=== PATIENT | male | born 2000 | race Caucasian/White ===

== ENCOUNTER 2024-05-27 21:47 | Emergency (ER) | payer OTHER ==
[~2024-05-27] VITALS: Ht 172.7 cm; Wt 59.0 kg
[~2024-05-27 21:47] MED LIST: AMOX50SU PO; CEPH250SUA PO; CODACEE120 PO; FOLI1 PO; MELA3 PO
[2024-05-27 21:53] VITALS: BP 121/73
[2024-05-27] MEDS ORDERED: RX Prepack 2 Tabs Ondansetron ODT 4MG UD ONE (22:10)
[2024-05-27] MEDS ORDERED: ONDA4ODT MM (22:15)
== END 2024-05-27 22:13 | disposition home or self-care (01) ==
LOC: ER 21:47
DX: S06.0X0A Concussion without loss of consciousness, initial encounter (principal); W22.8XXA Striking against or struck by other objects, initial encounter
CPT/HCPCS: 99283; A9270

== ENCOUNTER 2024-10-01 19:04 | Inpatient (IN) | payer OTHER ==
[~2024-10-01] VITALS: Ht 167.6 cm; Wt 54.4 kg
[~2024-10-01 19:04] MED LIST changes: +ONDA4ODT MM
[2024-10-01 19:46] LABS: BASOPHILS ABSOLUTE AUTO 0.04 K/mm3 (0.00-0.23); BASOPHILS PERCENT AUTO 1 % (0-2); EOSINOPHILS ABSOLUTE AUTO 0.11 K/mm3 (0.00-0.68); EOSINOPHILS PERCENT AUTO 1 % (0-6); Hematocrit 45.3 % (37.0-53.0); Hemoglobin 14.9 g/dL (13.5-17.5); IMMATURE GRAN ABSOLUTE AUTO 0.03 K/mm3 (0.00-0.10); IMMATURE GRAN PERCENT AUTO 0 % (0-1); LYMPHOCYTES ABSOLUTE AUTO 1.78 K/mm3 (0.84-5.20); LYMPHOCYTES PERCENT AUTO 21 % (21-46); MONOCYTES ABSOLUTE AUTO 0.48 K/mm3 (0.16-1.47); MONOCYTES PERCENT AUTO 6 % (4-13); Mean Corpuscular HGB 29.6 pg (26.0-34.0); Mean Corpuscular HGB Conc 32.9 g/dL (31.5-36.5); Mean Corpuscular Volume 90 fL (80-100); Mean Platelet Volume 10.4 fL (9.1-12.4); NEUTROPHILS ABSOLUTE AUTO 5.95 K/mm3 (1.96-9.15); NEUTROPHILS PERCENT AUTO 71 % (41-73); Platelet Count 305 K/mm3 (150-400); RDW Standard Deviation 42.8 fL (35.1-46.3); Red Blood Cell Count 5.04 M/mm3 (4.30-5.90); White Blood Cell Count 8.39 K/mm3 (4.00-11.30)
[2024-10-01 20:23] LABS: Ethanol (Alcohol), Blood, Med <3 mg/dL
[2024-10-01 20:24] LABS: Salicylate <1.7 mg/dL (2.8-20.0)
[2024-10-01 20:35] LABS: Source, Urine Clean Catch
[2024-10-01 20:40] LABS: Appearance, Urine Clear (Clear); Bilirubin, Urine Neg (Neg); Blood, Urine Neg (Neg); Color, Urine Yellow (P-Yellow); Glucose Qualitative, Urine Neg (Neg); Ketones, Urine Neg (Neg); Leukocyte Esterase, Urine 1+ (Neg); Nitrite, Urine Neg (Neg); Protein, Urine Neg (Neg); Urobilinogen, Urine NORM (Normal)
[2024-10-01 20:50] LABS: Alanine Aminotransfer (ALT/SGP 29 U/L (12-78); Albumin, Blood 4.3 g/dL (3.4-5.0); Alk Phos 72 U/L (50-136); Anion Gap 9 mmol/L (3-11); Aspartate Aminotrans (AST/SGOT 16 U/L (12-37); Bilirubin, Total 0.6 mg/dL (0.1-1.0); Blood Urea Nitrogen 8 mg/dL (8-24); CO2, Blood 29 mmol/L (21-32); Calcium, Blood 9.6 mg/dL (8.5-10.1); Chloride, Blood 102 mmol/L (98-108); Globulin, Blood 4.4 g/dL (2.2-4.0); Glomerular Filtration Rate 127 (60-); Glucose, Blood 105 mg/dL (70-99); Potassium, Blood 3.9 mmol/L (3.5-5.5); Sodium, Blood 136 mmol/L (136-145); Total Protein, Blood 8.7 g/dL (6.4-8.2)
[2024-10-01 20:51] LABS: Acetaminophen, Random <2.0 ug/mL (10.0-30.0)
[2024-10-01 20:52] LABS: Bacteria Few /hpf; Red Blood Cells, Urine Not Seen /hpf (0-2); Squamous Epithelial Cells Not Seen /hpf (Few); White Blood Cells, Urine 0-2 /hpf (0-5)
[2024-10-01] MEDS ORDERED: DiphenhydrAMINE HCl 50 MG/ML 1ML Vial IM ONE (21:35)
[2024-10-01] MEDS ORDERED: LORazepam 2 MG/ML 1ML Injection IM ONE (21:35)
[2024-10-01] MEDS ORDERED: Haloperidol Lactate Inj. 5 MG/ML Injection IM ONE (21:35)
[2024-10-01 21:37] LABS: U Amphetamine Screen Not Detected; U Barbituate Screen Not Detected; U Benzodiazapine Screen DETECTED; U Buprenorphine Screen Not Detected; U Cannabinoids Screen DETECTED; U Cocaine Screen Not Detected; U Methadone Screen Not Detected; U Methamphetamine Screen Not Detected; U Opiates Screen Not Detected; U Oxycodone Screen Not Detected; U Phencyclidine Screen Not Detected
[2024-10-01] MEDS ORDERED: FLUOXETINE HCL60 MG PO (22:33)
[2024-10-01] MEDS ORDERED: Melatonin 1 MG Tablet PO ONE (22:35)
[2024-10-02 14:42] VITALS: BP 111/62
== END 2024-10-02 15:02 | disposition other institution (70) | DRG 883 ==
LOC: ER 19:04 → EOR 23:46
PROVIDERS: Student in an Organized Health Care Education/Training Program; ADMIT Emergency Medicine
DX: F60.3 Borderline personality disorder (principal); R45.851 Suicidal ideations; F31.60 Bipolar disorder, current episode mixed, unspecified
CPT/HCPCS: 80053; 80320; 81001; 85025; 87086; 93005; 93010; 96372; 99285-25; A9270; G0378; G0480; J1200; J1630; J2060

== ENCOUNTER 2024-10-02 12:55 | Inpatient (IN) | payer OTHER ==
[~2024-10-02] VITALS: Ht 172.7 cm; Wt 51.0 kg
[~2024-10-02 12:55] MED LIST changes: +FLUOXETINE HCL60 MG PO
[2024-10-02] MEDS ORDERED: HydrOXYzine Pamoate 50 MG Cap PO PRN (13:45)
[2024-10-02] MEDS ORDERED: LORazepam 2 MG Tab PO PRN (13:50)
[2024-10-02] MEDS ORDERED: Ibuprofen 600 MG Tab PO PRN (13:50)
[2024-10-02] MEDS ORDERED: LORazepam 2 MG/ML 1ML Injection IM PRN (13:50)
[2024-10-02] MEDS ORDERED: Melatonin 3 MG Tab PO PRN (13:50)
[2024-10-02] MEDS ORDERED: OLANZapine ODT 10 MG Tab MM PRN (13:50)
[2024-10-02] MEDS ORDERED: Haloperidol 5 MG Tab PO PRN (13:50)
[2024-10-02] MEDS ORDERED: Ondansetron 4 MG SoluTab MM PRN (13:50)
[2024-10-02] MEDS ORDERED: DiphenhydrAMINE HCl 50 MG Cap PO PRN (13:55)
[2024-10-02] MEDS ORDERED: Calcium Carbonate 500 MG Tab Chew PO PRN (13:55)
[2024-10-02] MEDS ORDERED: Polyethylene Glycol 3350 17 gm PO PRN (13:55)
[2024-10-02] MEDS ORDERED: Aluminum Hydroxide 320MG/5ML 473 ML PO PRN (13:55)
[2024-10-02] MEDS ORDERED: DiphenhydrAMINE HCl 50 MG/ML 1ML Vial IV PRN (13:55)
[2024-10-02] MEDS ORDERED: TraZODone HCl 50 MG Tab PO PRN (13:55)
[2024-10-02] MEDS ORDERED: Acetaminophen 325 MG TABLET PO PRN (13:55)
[2024-10-02] MEDS ORDERED: Haloperidol Lactate Inj. 5 MG/ML Injection IM PRN (14:00)
[2024-10-02] MEDS ORDERED: FLU VACC TS2024-25(6MOS UP)/PF 45 MCG/0.5 ML SYRINGE IM SCH (14:00)
[2024-10-02 15:13] VITALS: BP 110/89
[2024-10-02 15:41] VITALS: BP 110/89
--- NOTE | 2024-10-02 16:59 | NUR ---
ADMISSION NOTE. PT ARRIVED FROM THE ER AT 1505. PT A/O X4. PT WAS COVERED IN STOOL. SHOWERED ON ARRIVAL. SKIN CHECK BY 2 RNS. NO WOUND PRESENT. PT IS MANIC AND NEVER STOPS TALKING. PT STATS HE IS NOT SI, HI AND AVH. HE SAID HE MADE THE SI COMMENT BY MISTAKE. PT HARD TO KEEP ENGAGED ON INTERVIEW. JUMPS FROM SUBJECT OF HIMSELF IN APPRAISALS, THEN GOES BACK TO TALKING ABOUT HIS GIRLFRIEND, THEN RELIGON, AND CONTINUES THIS CYCLE. WANTS TO GO TO SLEEP. STATED HE NEVER HAD A PLAN ON SI. SAID HE DID NOT HAVE ENOUGH MARIJUANA THE NIGHT OF HIS OCCURANCE. GIVEN TOUR OF THE UNIT, EXPLAINED WHAT IS EXPECTED ON HIS ADMIT AND HW THE UNIT RUNS. INTODUCED PT TO PEERS, HE THEN WENT OFF TO BED AND HAS BEEN SLEEPING SINCE ARRIVAL.
--- NOTE | 2024-10-03 04:30 | NUR ---
SHIFT SUMMARY Pt is A&O, calm, cooperative, eye contact is appropriate. Pt stated that his mood was "much better than earrlier. Affect is constricted. Pt denies SI, HI, and hallucinations. Pt also denied current pain. Pt was sleeping in his room at the beginning of the shift. He was awakened at snack time and assessed. Pt was visibly tremulous while drinking his beverage in the lunch room. He has no scheduled HS meds, but did ask for PRN trazodone and melatonin. Pt appears gaunt and malnourished. His weight is 114 lbs and BMI 17.3. Columnist submitted dietitian consult and he was given an Ensure with his snack. Pt returned to his room after his snack and remained there for the rest of the shift. Staff continues to monitor for safety and wellness.
[2024-10-03 07:58] VITALS: BP 129/87
[2024-10-03] MEDS ORDERED: Multivitamins 1 Tab PO SCH (09:00)
[2024-10-03 09:06] VITALS: BP 110/89
--- NOTE | 2024-10-03 09:37 | NUR ---
PT AWAKE AT BEGINNING OF SHIFT. COMPLIANT THAT HE IS ANXIOUS. PACNG THE THE FLOOR. TANGENTIEL THOUGHTS, NON-STOP TALKING. PT IS FOUCUSED ON HIS /GIRLFRIEND WANTING TO USE THE PHONE AT 0630 TO CALL HER. PT HAD VISTERAIL AT 0550. IT IS NOW AT 0854 WAS GIVEN ZYPREXA TO SEE F THIS WILL HELP. PT IS HYPER VERBAL, HYPERACTIVE, INTRUSIVE, HAS FLIGHT OF IDEAS. WILL LET MD KNOW AT AM MEETING. WILL CONTINUE TO MONITOR.
[2024-10-03] MEDS ORDERED: FLUoxetine HCL 20 MG CAP PO ONE (10:35)
--- NOTE | 2024-10-03 18:06 | NUR ---
SHIFT SUMMARY: PT A/O X4. HYERACTIVE, WANTS TO BE THE LEADER AND IN CONTROL WITH OTHER PEERS, HYPERVERBAL, PACED THE HALLS MOST OF THE DAY, HAS FLIGHT OF IDEAS. STARTED ON PROZAC TODAY. ASKED FREQUENTLY FOR ANXIETY MEDICINE. DIETICAN TO SEE PT ON SATURDAY. HAS BEEN DRINKING ENSURE SHAKES. GIRLFRIEND CAME TO VISIT TODAY. WILL CONTINUE TO MONITOR.
--- NOTE | 2024-10-04 05:34 | NUR ---
SHIFT SUMMARY Pt is A&O, cooperative, hyperactive, appropriate eye contact. Pt stated his mood was "excited," affect is elevated. Pt denies SI, HI, hallucinations. He also denied pain, depression, and anxiety. Pt was active on the milieu, walking the mayers and talking with peers and staff. His manner is hyperactive, hyperverbal, hyper-latter day. Pt stated to telegraphic typewriter operator chief, "I lied to get in here, I don't ron to be here anymore." when asked about pain, he replied, "only emotional, I'm missing my woman. Pt did shower this evening. Staff continues to monitor q15m for safety and wellness.
[2024-10-04 07:34] VITALS: BP 131/88
[2024-10-04] MEDS ORDERED: BusPIRone HCl 5 MG Tab PO PRN (08:25)
[2024-10-04] MEDS ORDERED: FLUoxetine HCL 20 MG CAP PO SCH (09:00)
--- NOTE | 2024-10-04 17:09 | NUR ---
SHIFT SUMMARY PT AA&OX4. PLEASANT AND COOPERATIVE WITH CARE. SPEECH IS RUSHED AND EYE CONTACT IS LIMITED. PT PRESENT WITH SOME MANIC BEHAVIORS SUCH CONSTANT ACTIVITY, RUSHED SPEECH THAT JUMPS FROM TOPIC TO TOPIC. MOOD IS EUPHORIC PT REPORTS THAT HE IS "EXTREMELY HAPPY" AND HE "DOESN'T BELONG HERE" PT REPORTS A TRIGGER WITH PEER THAT "TRIGGERED" HE REPORTS THAT A FEMALE PT CALLED HIM A "DEMON" REPEATEDLY. PEER AND PATIENT AND PT MEDICATED X1 WITH ZYPREXA WITH GOOD RESULTS. EDUCATION ON MEDICATION AND DX ATTEMPTED. PT WAS RESTLESS AND EDUCATION WILL NEED REINFORCED. WILL CONTINUE POC
[2024-10-04] MEDS ORDERED: QUEtiapine Fumarate 100 MG Tab PO SCH (21:00)
--- NOTE | 2024-10-05 05:29 | NUR ---
SHIFT SUMMARY Pt A&O, hyperactive, cooperative, eye contact is appropriate. Pt describes hismood as "best," affect is elevated. He denies SI, HI, and hallucinations. No c/o pain, depression, or anxiety. Pt was active on the milieu, pacing the hallway and talking to peers. His manner is hyperactive and hyperverbal. Pt spent time in the sensory room taking about various topics, often interupting peers as they were sharing. Pt received PRN buspirone, trazodone, melatoning, and hydroxyzine at med pass. At about 0100 he c/o neck pain and received PRN APAP. Staff continues to monitor q15m for safety and wellness.
[2024-10-05 08:53] VITALS: BP 145/93
[2024-10-05] MEDS ORDERED: Omeprazole 20 MG CapCR PO SCH (09:00)
--- NOTE | 2024-10-05 15:26 | NUR ---
SHIFT REPORT: PT DENIED SI, HI AND AVH. HE SAID HIS ANXIETY WAS A "BILLION", HE REPORTED THAT HE HAS PAIN, "IN MY HEART...IT'S MY BABY GIRLS FIRST BIRTHDAY AND I CAN'T SEE HER." HE SAID, "FORGET TODAY!" THIS SAFETY LEAD ASKED HIM TO CHOOSE A DIFFERENT THOUGHT AND HE REPLIED, "I'M GRATEFUL MY DAUGHER WAS BORN A YEAR AGO TODAY." PT IS HYPERVERBAL, HYPERACTIVE, FRIENDLY AND INTERACTIVE WITH THE MILIEU. HE ATTENDS GROUPS. HE CAME TO THE DESK AND ASKED FOR AMA PAPERS AND WAS TOLD THAT HE WAS ON A HOLD. PT COMPLAINED THAT HE IS FEELING CONSTIPATED AND WAS GIVEN MIRALAX 17GMS WITH NO SUCCESS SO FAR.
[2024-10-05] MEDS ORDERED: METF500 PO (17:59)
[2024-10-05] MEDS ORDERED: ROPI.25 PO (18:07)
[2024-10-05] MEDS ORDERED: ALBU90OI INH (18:08)
[2024-10-05] MEDS ORDERED: Haloperidol5 MG PO (18:10)
[2024-10-05] MEDS ORDERED: BENZTROPINE MESY1 M6 PO (18:12)
[2024-10-05] MEDS ORDERED: OLAN20 MM (18:13)
[2024-10-05] MEDS ORDERED: OLAN10 PO (18:13)
[2024-10-05] MEDS ORDERED: ALLERCLEAR10 MG PO (18:14)
[2024-10-05] MEDS ORDERED: QUEtiapine Fumarate 200 MG Tab PO SCH (21:00)
[2024-10-06 00:28] VITALS: BP 125/78
--- NOTE | 2024-10-06 05:18 | NUR ---
SHIFT SUMMARY Pt is A&O, cooperative, hyperactive, eye contact is appriate. Pt states his mood is "10 out of 10," affect is elevated. Pt denies SI, HI, and hallucintaions. No c/o pain, depression, or anxiety. Pt active on milieu. He continues to be hyperverbal and hyperactive. HS quetiapine increased to 200mg HS. Pt received PRN trazodone, melatonin, and olanzapine during this shift. Staff continues to monitor q15m for safety and wellness.
[2024-10-06 08:24] VITALS: BP 134/77
[2024-10-06] MEDS ORDERED: Prozac40 MG PO (11:47)
[2024-10-06] MEDS ORDERED: QUET200 PO (11:48)
--- NOTE | 2024-10-06 13:11 | NUR ---
DISCHARGE NOTE SAFETY PLAN COMPLETED WITH PT AND JANEY CAMPBELL. D/C INSTRUCTIONS EXPLAINED AND COPY GIVEN TO PT. PT STATES UNDERSTANDING OF THEM. PT CONTACTED S/O FOR TRANSPORTATION HOME. MEDS FAXED TO [facility] PER PT REQUEST. PT DRESSED IN OWN CLOTHING AND GIVEN BELONGINGS BY JEREMY AGUDELO. PT AMBULATED OUT OF [facility] ON OWN USING A STEADY GAIT. ALL D/C QUESTIONS ANSWERED.
== END 2024-10-06 13:11 | disposition home or self-care (01) | DRG 883 ==
LOC: BHU 12:55
PROVIDERS: ADMIT Psychiatry & Neurology Psychiatry
DX: F60.3 Borderline personality disorder (principal); R45.851 Suicidal ideations; F31.60 Bipolar disorder, current episode mixed, unspecified; Z79.899 Other long term (current) drug therapy
CPT/HCPCS: A9270

== ENCOUNTER 2025-01-12 02:36 | Observation (INO) | payer OTHER ==
[~2025-01-12] VITALS: Ht 172.7 cm; Wt 63.5 kg
[~2025-01-12 02:36] MED LIST changes: +ALBU90OI INH; +ALLERCLEAR10 MG PO; +BENZTROPINE MESY1 M6 PO; +Haloperidol5 MG PO; +METF500 PO; +OLAN10 PO; +OLAN20 MM; +Prozac40 MG PO; +QUET200 PO; +ROPI.25 PO
[2025-01-12 04:28] LABS: Source, Urine Clean Catch
[2025-01-12 04:31] LABS: BASOPHILS ABSOLUTE AUTO 0.05 K/mm3 (0.00-0.23); BASOPHILS PERCENT AUTO 1 % (0-2); EOSINOPHILS ABSOLUTE AUTO 0.17 K/mm3 (0.00-0.68); EOSINOPHILS PERCENT AUTO 2 % (0-6); Hematocrit 43.9 % (37.0-53.0); Hemoglobin 15.1 g/dL (13.5-17.5); IMMATURE GRAN ABSOLUTE AUTO 0.03 K/mm3 (0.00-0.10); IMMATURE GRAN PERCENT AUTO 0 % (0-1); LYMPHOCYTES PERCENT AUTO 22 % (21-46); MONOCYTES ABSOLUTE AUTO 0.66 K/mm3 (0.16-1.47); MONOCYTES PERCENT AUTO 7 % (4-13); Mean Corpuscular HGB 31.1 pg (26.0-34.0); Mean Corpuscular HGB Conc 34.4 g/dL (31.5-36.5); Mean Corpuscular Volume 91 fL (80-100); Mean Platelet Volume 10.9 fL (9.1-12.4); NEUTROPHILS PERCENT AUTO 68 % (41-73); Platelet Count 301 K/mm3 (150-400); RDW Standard Deviation 42.9 fL (35.1-46.3); Red Blood Cell Count 4.85 M/mm3 (4.30-5.90); White Blood Cell Count 9.81 K/mm3 (4.00-11.30)
[2025-01-12 04:37] LABS: Bilirubin, Urine Neg (Neg); Blood, Urine Neg (Neg); Glucose Qualitative, Urine Neg (Neg); Ketones, Urine Neg (Neg); Leukocyte Esterase, Urine Neg (Neg); Nitrite, Urine Neg (Neg); Protein, Urine Neg (Neg); Urobilinogen, Urine NORM (Normal)
[2025-01-12 04:39] LABS: Appearance, Urine Clear (Clear); Color, Urine Pale Yellow (P-Yellow)
[2025-01-12 04:44] LABS: Salicylate <1.7 mg/dL (2.8-20.0)
[2025-01-12 05:00] LABS: U Amphetamine Screen Not Detected; U Barbituate Screen Not Detected; U Benzodiazapine Screen Not Detected; U Buprenorphine Screen Not Detected; U Cannabinoids Screen DETECTED; U Cocaine Screen Not Detected; U Methadone Screen Not Detected; U Methamphetamine Screen Not Detected; U Opiates Screen Not Detected; U Oxycodone Screen Not Detected; U Phencyclidine Screen Not Detected
[2025-01-12] MEDS ORDERED: OLANZapine 5 MG Tab PO ONE (05:05)
[2025-01-12 05:12] LABS: Acetaminophen, Random <2.0 ug/mL (10.0-30.0); Alanine Aminotransfer (ALT/SGP 45 U/L (12-78); Albumin, Blood 3.6 g/dL (3.4-5.0); Albumin/Globulin Ratio 0.9 (0.8-1.8); Alk Phos 82 U/L (50-136); Anion Gap 12 mmol/L (3-11); Aspartate Aminotrans (AST/SGOT 42 U/L (12-37); Bilirubin, Total 0.4 mg/dL (0.1-1.0); Blood Urea Nitrogen 8 mg/dL (8-24); Bun/Creatinine Ratio 6.7 (12.0-20.0); CO2, Blood 22 mmol/L (21-32); Calcium, Blood 8.5 mg/dL (8.5-10.1); Chloride, Blood 107 mmol/L (98-108); Ethanol (Alcohol), Blood, Med <3 mg/dL; Globulin, Blood 3.8 g/dL (2.2-4.0); Glomerular Filtration Rate 86 (60-); Glucose, Blood 133 mg/dL (70-99); Sodium, Blood 137 mmol/L (136-145); Total Protein, Blood 7.4 g/dL (6.4-8.2)
[2025-01-12 05:37] VITALS: BP 148/99
[2025-01-12] MEDS ORDERED: TRAZ100 PO (14:10)
[2025-01-12] MEDS ORDERED: Hydroxyzine HCl50 MG PO (14:10)
== END 2025-01-12 13:00 | disposition other institution (70) ==
LOC: ER 02:36 → EOR 02:37
PROVIDERS: ADMIT Emergency Medicine
DX: F31.9 Bipolar disorder, unspecified (principal); R45.851 Suicidal ideations; Z79.84 Long term (current) use of oral hypoglycemic drugs; Z79.899 Other long term (current) drug therapy
CPT/HCPCS: 80053; 80320; 81003; 85025; 93005; 93010; 99285-25; A9270; G0378; G0480

== ENCOUNTER 2025-01-12 12:29 | Inpatient (IN) | payer OTHER ==
[~2025-01-12] VITALS: Ht 172.7 cm; Wt 62.3 kg
[2025-01-12 13:09] VITALS: BP 124/88
[2025-01-12 13:36] VITALS: BP 124/88
[2025-01-12] MEDS ORDERED: Prozac40 MG PO (14:09)
[2025-01-12] MEDS ORDERED: Hydroxyzine HCl50 MG PO (14:10)
[2025-01-12] MEDS ORDERED: TRAZ100 PO (14:10)
[2025-01-12] MEDS ORDERED: Aluminum Hydroxide 320MG/5ML 473 ML PO PRN (15:40)
[2025-01-12] MEDS ORDERED: Melatonin 3 MG Tab PO PRN (15:40)
[2025-01-12] MEDS ORDERED: OLANZapine ODT 10 MG Tab MM PRN (15:40)
[2025-01-12] MEDS ORDERED: Ondansetron 4 MG SoluTab MM PRN (15:40)
[2025-01-12] MEDS ORDERED: TraZODone HCl 50 MG Tab PO PRN (15:40)
[2025-01-12] MEDS ORDERED: Acetaminophen 325 MG TABLET PO PRN (15:40)
[2025-01-12] MEDS ORDERED: Ibuprofen 600 MG Tab PO PRN (15:45)
[2025-01-12] MEDS ORDERED: Polyethylene Glycol 3350 17 gm PO PRN (15:45)
[2025-01-12] MEDS ORDERED: LORazepam 2 MG/ML 1ML Injection IM PRN (15:45)
[2025-01-12] MEDS ORDERED: Haloperidol Lactate Inj. 5 MG/ML Injection IM PRN (15:45)
[2025-01-12] MEDS ORDERED: Haloperidol 5 MG Tab PO PRN (15:45)
[2025-01-12] MEDS ORDERED: LORazepam 2 MG Tab PO PRN (15:45)
[2025-01-12] MEDS ORDERED: HydrOXYzine Pamoate 50 MG Cap PO PRN (15:45)
[2025-01-12] MEDS ORDERED: Calcium Carbonate 500 MG Tab Chew PO PRN (15:45)
[2025-01-12] MEDS ORDERED: DiphenhydrAMINE HCl 50 MG Cap PO PRN (15:50)
[2025-01-12] MEDS ORDERED: DiphenhydrAMINE HCl 50 MG/ML 1ML Vial IM PRN (15:50)
--- NOTE | 2025-01-12 17:32 | NUR ---
ADMISSION NOTE AND SHIFT SUMMARY PT ARRIVED TO U FROM [facility] ED AT APPROX 1304. PT IS Ax0x4. PLEASANT AND COOPERATIVE WITH CARE. PT'S ADMISSION COMPLETED AND ALL VOLUNTARY FORMS WERE SIGNED AND FILED IN CHART. PT WAS ADMITTED FOR SI AND CURRENLTY STILL ENDORSES FEELING SUICIDAL BUT DENIES HAVING PLAN OR INTENT, STATING HE "FEELS SAFE HERE AND WON'T DO ANY THING LIKE THAT HERE." PT DENIES ANY AVTH OR HI. CURRENT STRESSORS REPORTED ARE HOUSLESSNESS, POOR SUPPORT SYSTEM AND RECENT TRAUMATIC MCFP STAY. PT ATTENDED THE AFTERNOON MILIEU GROUP AFTER ADMISSION, BUT HAS PRIMARILY BEEN IN HIS BED SLEEPING. PT DECLINED GETTING UP FOR DINNER. HE IS CURRENTLY RESTING IN HIS BED. DENIED ANY NEEDS AT THIS TIME.
[2025-01-12 20:00] VITALS: BP 117/71
--- NOTE | 2025-01-13 04:21 | NUR ---
SHIFT SUMMARY PT SLEEPING AT START OF SHIFT. HE AWOKE SHORTLY PRIOR TO SNACK TIME. HE WAS ORIENTED TO SELF ONLY. HE STATED HE THOUGHT HE WAS STILL IN DETENTION. WHEN ASKED IF HE WAS SUICIDAL OR HAD ANY AVH HE STATES "I DON'T KNOW". PT STATES THAT HIS DEPRESSION LEVEL IS 10/10. AT TIMES PT IS TEARFUL. SPEECH BECAME LOUD AND PRESSURED WITH FLIGHT OF IDEAS. PT RECEIVED PRN TRAZODNE, MELATONIN, ZYPREXA FOR MASS OF 6 AND LATER VISTARIL FOR MASS OF 3. PT APPEARED TO FALL ASLEEP AT APPROXIMATELY 2300 AND HAS SLEPT THROUGHOUT THE NIGHT, WITH RESPIRATIONS CONFIRMED. Q15 MINUTE CHECKS TO CONTINUE PER PT SAFETY/PROTOCOL.
[2025-01-13 06:35] LABS: CHOL/HDL RATIO 2.8; Cholesterol 157 mg/dL (50-200); HDL Cholesterol 57 mg/dL (>39); LDL/HDL RATIO 1.5; Low Density Lipoprotein Chol 87 mg/dL (0-110); Triglycerides 64 mg/dL (30-140); Very Low Density Lipoprot Chol 12 mg/dL (6-28)
[2025-01-13 08:20] VITALS: BP 130/78
[2025-01-13] MEDS ORDERED: Multivitamins 1 Tab PO SCH (09:00)
[2025-01-13] MEDS ORDERED: Divalproex Sodium 500 MG TABLET.DR PO ONE (10:50)
[2025-01-13] MEDS ORDERED: OLANZapine 10 MG Tab PO ONE (10:50)
[2025-01-13] MEDS ORDERED: LORazepam 1 MG Tab PO ONE (10:55)
--- NOTE | 2025-01-13 11:50 | NUR ---
After Group time in the [facility], the Pt. followed this medicine aide out into the hallway, where he requested prayer. Pt. verbalized that he wanted to be able to see his daughter again. Prayed with Pt. Pt. verbalized gratitude for the spiritual care visit.
--- NOTE | 2025-01-13 16:43 | NUR ---
SHIFT SUMMARY PT AA&O TO PERSON. HE WAS NOT ABLE TO TELL THIS RN THE DATE, WHERE HE IS OR HOW LONG HE HAS BEEN ON THE UNIT. PT BEHAVIOR ELEVATED THIS AM. PT SPEECH TANGENTAL, HE WAS PACING THE HICKMAN. HE WAS UNAWARE OF PERSONSONAL SPACE WITH PEERS ON THE MILIEU. HE IS HYPER RELIGOUS. HE REPORTS THAT HE LOVES. EVERYONE. HE DENIED SI FOR THIS RN THEN ENDORSED TO MD. DR. COBB PLACED ONE TIME ORDER FOR 20MG ZYPREXA, 1MG ATIVAN WITH GOOD RESULTS. HE HAS BEEN ABLE TO DEESCALATE. HE HAS BEEN ABLE TO GO TO PARTIAL GROUPS. HE DOES REQUIRE REDIRECTION OFTEN. HE DENIES SI, AVH. WILL CONTINUE POC
[2025-01-13 20:23] VITALS: BP 125/50
[2025-01-13] MEDS ORDERED: Divalproex Sodium 500 MG TABLET.DR PO SCH (21:00)
[2025-01-13] MEDS ORDERED: OLANZapine 10 MG Tab PO SCH (21:00)
--- NOTE | 2025-01-13 23:16 | NUR ---
MASS SCORE: PATIENT WAS STILL AWAKE AFTER 2300, UPSET AND BECOMING AGITATED DUE TO PERVASIVE THOUGHTS EXACERBATED BY ROOMMATE SNORING. HE WAS GIVEN SECOND TRAZODONE AND ZYPREXA FOR MASS SCORE 4/10. WILL FOLLOW UP INDICATED.
--- NOTE | 2025-01-14 04:22 | NUR ---
SHIFT SUMMARY: PLEASE SEE OTHER TWO NOTES FROM PABLO. PATIENT SINCE NOTES WERE WRITTEN HAS BEEN UP X1 TO ASK IF IT IS TIME TO EAT YET. HE WANTED NICORETTE GUM. HE WAS TOLD THAT HE CAN HAVE IT AFTER 0630 WHEN HE GETS UP, AND HE WAS ABLE TO ACCEPT THAT AND GO BACK TO BED. HE WAS NOTED TO BE RESTING MOST OF THE TIME FOR THE REMAINDER OF THE SHIFT. CONTINUING TO MONITOR FOR SAFETY WITH Q15 MINUTE CHECKS.
[2025-01-14] MEDS ORDERED: FLUoxetine HCL 20 MG CAP PO SCH (09:00)
[2025-01-14] MEDS ORDERED: Divalproex Sodium 500 MG TABLET.DR PO ONE (12:05)
--- NOTE | 2025-01-14 18:34 | NUR ---
SHIFT SUMMARY: PT HAS SPENT MOST OF DAY OUTSIDE OF ROOM. EPISODES OF LOUD, MU-ISM SPEECH BUT FOLLOWS REQUESTS IMMEDIATELY TO SPEAK QUIETER OR NOT BE DISRUPTIVE. MUCH CALMER AFTER FELLOW PATIENT LEFT WHOM GIANCARLO TENDED TO ELEVATE SYMPTOMS AROUND. MET WITH READING RECOVERY TEACHER TODAY AND RECEIVED A BIBLE. MEDICATIONS INCREASED BY THIS AM. CONTINUE 15 MIN SAFETY CHECKS.
[2025-01-14 19:32] VITALS: BP 116/75
[2025-01-14] MEDS ORDERED: Divalproex Sodium 500 MG TABLET.DR PO SCH (21:00)
--- NOTE | 2025-01-15 04:07 | NUR ---
SHIFT SUMMARY: PATIENT WAS IN THE MILIEU AT THE BEGINNING OF THE SHIFT. HE WAS INAPPROPRIATE AT TIMES, TALKING TO FEMALE PEER AND TELLING HER THEY WERE GETTING . HE WAS CUED AND REDIRECTED BY STAFF, BUT WOULD LATER REPEAT HIS WORDS. FEMALE PEER WAS CLEARLY UNCOMFORTABLE AND SAT BY FEMALE MHA IN DAY ROOM AREA. PATIENT PARTICIPATED IN SNACK TIME AT 1999, AND WAS COMPLIANT WITH EVENING MEDICATIONS. HE STAYED UP FOR A TIME, TALKING WITH STAFF AND PEERS AND WORKING ON COLORING. HE WENT TO BED WHEN THE DAY ROOM CLOSED AND WAS NOTED TO BE RESTING QUIETLY WITH EYES CLOSED AND RESPIRATIONS CONFIRMED FOR THE REMAINDER OF THE SHIFT. CONTINUING TO MONITOR FOR SAFETY WITH Q15 MINUTE CHECKS.
--- NOTE | 2025-01-15 16:29 | NUR ---
PATIENT HYPERVIGILANT, HIGH ENERGY PACING UP AND DOWN HALLWAYS AND INTRUSIVE WITH PEERS AND STAFF, COMMENTING ABOUT LOOKS, ASKING PATIENTS AND STAFF TO HIM, BEAT-BOXING HE PACES IN THE HICKMAN. PATIENT DID ENDORSE SI THIS AM, STATING THAT HED LIKE TO BY MARKET RESEARCH ANALYST, OR PLACE HEAD ON TRAIN TRACKS. HE WAS GIVEN A B52 EARLY IN THE SHIFT, WHICH WAS EFFECTIVE IN REDUCING SYMPTOMS BUT NOT ELIMINATING THEM. EZRA IS ALERT, HYPERVIGILENT AND SINGING IN THE GROUP ROOM CURRENTLY. HE TOOK ALL OF HIS MORNING MEDS, A PRN ZYPREXA, AND THE B52 AND STILL HAS ONGOING HIGH ENERGY. THOUGHT CONTENT APPEARS TO BE A FLIGHT OF IDEAS WITHOUT LOGIC. AFFECT IS HAPPY AND ALERT. MOOD IS ACTUALLY LABILE WITH PERIODS OF CRYING CHANGING TO HAPPY- SUDDENLY.
[2025-01-15 19:07] VITALS: BP 131/90
--- NOTE | 2025-01-16 05:09 | NUR ---
SHIFT SUMMARY PT A&O X4. DENIES SI, HI, AVTH. PT MANIC W/ CIRCUMSTANTIAL THINKING. RAPID SPEECH W/ INTERMITTENT INNAPPROPRIATE REMARKS. DIFFICULT TO REDIRECT. BEFORE BED, PT STATED, "I'M SANDY, I KNOW SANDY, HE'S MY FRIEND.". PT ALSO PUT TOOTHPASTE OVER HIS ARM AND HEAD, TOOTHPASTE TAKEN AWAY. PT ALSO MARKED HIS FACE W/ MARKER. B52 GIVEN D/T AGITATION. HAS BEEN SLEEPING/RESTING QUIETLY SINCE 0200~. PT ALSO REFUSED TO TAKE DEPAKOTE EVEN W/ REPEATED EDUCATION GIVEN ON PURPOSE OF MEDICATION W/ PT STATING THAT HIS MANIC STATUS IS "NORMAL".
--- NOTE | 2025-01-16 08:37 | NUR ---
PT SLEPT THROUGH BREAKFAST. WILL MEDICATE WITH AM MEDS ONCE HE IS AWAKE.
--- NOTE | 2025-01-16 13:55 | NUR ---
PT PACING THE HALLS. SPEECH ELEVATED AND TANGENTAL. HE IS EMOTIONALY LABILE REPORTING THAT HE IS AN ALIEN, MONKEY, AND THAT HE LOVES GOD. HE REPORTS WANTING TO LEAVE AMA. HE IS AGRREABLE TO TAKING AN ORAL BENADRYL, ATIVAN, AND HALODOL. MASS SCORE COMPLETE AND MEDICATION GIVEN WITHOUT ISSUE
--- NOTE | 2025-01-16 16:50 | NUR ---
SHIFT SUMMARY PT AA&O TO PERSON, PLACE, AND SITUATION. PT REQUIRED AN EMERGENCY MED THIS AFTERNOON, PLEASE SEE PREVIOUS NOTE. AFTER EMERGENCY MED PATIENT WAS ABLE TO SLEEP FOR A COUPLE HOURS. HE IS UP AND CALM. EYE CONTACT IS LIMITED, SPEECH IS LESS PRESSURED THAN THIS MORNING. PT AT THIS TIME IS UNABLE TO APPROPRIATELY ASSESSMENT QUESTIONS. WILL CONTINUE TO MONITOR
[2025-01-16 20:06] VITALS: BP 138/82
--- NOTE | 2025-01-17 01:02 | NUR ---
UPDATE PT BECAME AGITATED MASS >9, SITTING IN ROOM AND TALKED ABOUT KILLING HIMSELF, STATING "THERE ARE SO MANY THINGS IN HERE I CAN DO IT WITH.". PT ALSO BEGAN TALKING ABOUT "CORRUPT" POLICE AND HOW THEY DID NOT GIVE HIM FOOD OR DRINK FOR 3 DAYS AND ALSO PUTTING "THICK BLACK HAIRS" IN HIS FOOD. WHILE JHOAN RN GETTING B52, PT BEGAN CRYING TALKING ABOUT MISSING HIS DAUGHTER. DR COBB NOTED ABOUT PT BEING HIGH SUICIDE RISK. 1:1 SITTING AT THIS TIME. NOTIFIED GUEST SERVICE REPRESENTATIVE W/ NO SITTERS AVAILABLE. CURRENT STAFF ROTATING 1:1 SITTING.
--- NOTE | 2025-01-17 05:27 | NUR ---
SHIFT SUMMARY NO ACUTE EVENTS SINCE LAST NOTE. PT SLEEPING W/ STAFF ROTATING 1:1 SITTER. SEE PREVIOUS NOTE FOR DETAILS.
--- NOTE | 2025-01-17 07:28 | NUR ---
ASSUMED PT CARE @ 0700. PT IS AA&OX4. COMPLETED SI ASSESSMENT. PT DENIES SI AND STATES HE WILL CONTRACT FOR SAFETY ON THE UNIT. NOTIFIED 1:1 DISCONTINUED
[2025-01-17] MEDS ORDERED: BusPIRone HCl 10 MG Tab PO SCH (09:00)
--- NOTE | 2025-01-17 13:52 | NUR ---
PT BEHAVIORS ESCALATING. AT LUNCH GEORGINA AGUDELO ASKED PT TO FOLLOW DIRECTION THE PT THEN THREATENE TO "KICK HIS ASS" HE WAS ABLE TO BE REDIRECTED, HE HAS BEEN HAVING INAPPROPRIATE CONVERSATIONS WITH PEERS REGARDING DRUGS AND FIREARMS REQUIRING CONTINUOUS CUES. PT THEN SINGING LOUDLY N TV ROOM WHILE PEERS ATTEMPT TO WATCH TV. WHEN GIVEN CUES PT BEGAN ARGUING WITH STAFF REPORTING THAT WE ARE TAKING AWAY HIS FREEDOM OF SPEECH. THIS RN ATTEMPTED TO VERBALLY DEESCALATE PT WHILE WALKING THE HICKMAN. HE BEGAN STATING THAT HE WANTED TO "KILL HIMSELF" "BE VEAGAN" "LEAVE AMA" SPEECH WAS PRESSURED. HE BEGAN CRYING THEN PUNCHED THE DOOR A COUPLE TIMES SAYING HE WAS GOING TO BREAK THE WINDOW, THEN SAYING HE WASNT GOING TO BREAK THE WINDOW. PT OFFERED MEDICATION TO CALM DOWN AND HE ACCEPTED. ORAL BENADRYL, ATIVAN, AND HALODOL. PT TOOK WITHOUT ISSUE. HE THEN AGREED TO LISTEN TO HEADPHONES IN THE SENSORY ROOM
--- NOTE | 2025-01-17 16:50 | NUR ---
SHIFT SUMMARY PT AA&O TO PERSON PLACE AND SITUATION. PT EMOTIONALY LABILE TODAY. HIS MOOD FLUCTUATES BETWEEN EUTHYMIC AND ANHEDONIA. HE HAS BEEN HYPERACTIVE PACING THE HALLS AND SEEMS TO BE UNAWARE OF OTHERS PERSONAL SPACE. HE GOES FROM REPORTING THAT HE LOVES EVERYONE TO HE WANTS TO KILL HIMSELF. HE REQUIRED AM HE REQUIRED AN EMERGENCY MED WITHOUT GOOD RESULTS. PLEASE SEE PREVIOUS NOTE. EYE CONTACT IS POOR. SPEECH IS INAPPROPRIATE AT TIMES AND HE DOES NOT SEEM TO BE ABLE TO TAKE SOCIAL CUES FROM PEERS TODAY. PT PROVIDED EDUCATION ON SEVERAL COPING SKILLS AND EXERCISES. HE REQUIRES FREQUENT DEESCALATION AND REDIRECTION. WILL CONTINUE POC
[2025-01-17 20:00] VITALS: BP 134/86
[2025-01-17] MEDS ORDERED: Divalproex Sodium 500 MG TABLET.DR PO SCH (21:00)
[2025-01-17] MEDS ORDERED: Lithium Carbonate 300 MG Cap PO SCH (21:00)
--- NOTE | 2025-01-18 05:13 | NUR ---
SHIFT SUMMARY DENIES SI, HI, AVTH. PT AT START OF SHIFT WAS MANIC AND PACING THE HALLWAY/TALKING W/ STAFF/PEERS W/ RAPID SPEECH/QUESTIONS. GIVEN B52 >MASS 9 W/ INCREASING AGITATION. DURING SNACKTIME PT MADE SEVERAL INNAPPROPRIATE REMARKS TOWARDS J CARLOS. ATTEMPTS AT SETTING BOUNDARIES DIFFICULT W/ CHANGING OF TOPICS APPEARING TO BE MOST EFFECTIVE. AFTER AFTER DAYROOM CLOSING PT PACING, THEN SAT IN SENSORY ROOM BEFORE GOING TO BED TIL 0000. PT UP TO NURSES STATION AND STATING HE CANNOT FALL ASLEEP AND WANTS TO PACE THE HALLS AND TALK. EXPLAINED TO PT THAT SLEEP IS IMPORTANT AND ABOUT SETTING BOUNDARIES W/ PT GOING BACK TO HIS ROOM. PT STATED THAT THIS RN WAS BEING RUDE D/T TELLING PT TO GO BACK TO ROOM AND TRY TO SLEEP. INFORMED PT THAT HE WAS ABLE TO BE AWAKE, BUT TO STAY IN ROOM AND READ OR LAY DOWN (PT WAS NODDING OFF AND UNSTEADY ON FEET). HAS BEEN SLEEPING/RESTING QUIETLY SINCE THEN. NO ISSUES TAKING MEDICATIONS/
--- NOTE | 2025-01-18 11:52 | NUR ---
IMPORTANT DISCHARGE INFORMATION Patient recently released from local senior living and is without insurance. No aftercare appointments are able to scheduled at this time. Aid and Assist case management assistant requests he discharge to her office at [facility] so she can assist him to sign up for services and insurance. sound effects supervisor notified
[2025-01-18] MEDS ORDERED: DIVA500EC PO (12:02)
[2025-01-18] MEDS ORDERED: LITH300C PO (12:02)
[2025-01-18] MEDS ORDERED: OLAN10 PO (12:03)
--- NOTE | 2025-01-18 12:40 | NUR ---
SHIFT SUMMARY/DC NOTE PT AxOx4. HYPER AND DISRUPTIVE BEHAVIOR NOTED THIS AM. PT REPORTS FEELING GREAT THIS AM, STATING HE IS READY TO DISCHARGE TODAY. PT DENIED SI/HI AND AVTH THIS SHIFT. HE HAS REPEATEDLY DISPLAYED ABNOXIOUS BEHAVIORS TODAY INCLUDING CURSING, SINGING LOUDLY, DEFIANTLY ARGUING WHEN STAFF ATTEMPTS REDIRECTION AND DE-ESCALATION. PT STATES HE IS NOT PLANNING ON TAKING HIS MEDICATIONS WHEN HE LEAVES BUT HE "WILL BE FINE BECAUSE I HAVE GOD." DC ORDERS PLACED, SAFETY PLAN COMPLETED AND DC INSTRUCTIONS DISCUSSED WITH PATIENT. PT VERBALIZED UNDERSTANDING INCLUDING DC MED LIST, FOLLOW UP APPOINTMENT INFO AND PATIENT EDUCATION ON DIAGNOSIS AND NEW MEDICATION. PT'S BELONGINGS WERE RETURNED AND HE WAS SAFELY ESCORTED OUT BY A AT 1230.
== END 2025-01-18 12:30 | disposition home or self-care (01) | DRG 885 ==
LOC: BHU 12:29
PROVIDERS: ADMIT Psychiatry & Neurology Psychiatry
DX: F31.60 Bipolar disorder, current episode mixed, unspecified (principal); R45.851 Suicidal ideations; Z59.00 Homelessness unspecified; K58.9 Irritable bowel syndrome, unspecified; F41.9 Anxiety disorder, unspecified; Z79.899 Other long term (current) drug therapy; Z87.19 Personal history of other diseases of the digestive system; Z79.1 Long term (current) use of non-steroidal anti-inflammatories (NSAID)
CPT/HCPCS: 36415; 80061; 83036; A9270

== ENCOUNTER 2025-01-18 17:50 | Observation (INO) | payer OTHER ==
[~2025-01-18] VITALS: Ht 167.6 cm; Wt 54.4 kg
[2025-01-20 19:42] VITALS: BP 133/117
== END 2025-01-21 11:59 | disposition other institution (70) ==
LOC: ER 17:50 → EOR 17:51
PROVIDERS: ADMIT Emergency Medicine
DX: F31.4 Bipolar disorder, current episode depressed, severe, without psychotic features (principal); R45.851 Suicidal ideations; Z79.899 Other long term (current) drug therapy

== ENCOUNTER 2025-01-21 09:46 | Inpatient (IN) | payer OTHER ==
[~2025-01-21] VITALS: Ht 172.7 cm; Wt 67.1 kg
[~2025-01-21 09:46] MED LIST changes: +DIVA500EC PO; +Hydroxyzine HCl50 MG PO; +LITH300C PO; +TRAZ100 PO
[2025-01-21 12:15] VITALS: BP 131/95
[2025-01-21 12:18] VITALS: BP 131/95
[2025-01-21] MEDS ORDERED: Nicotine Polacrilex 2 MG Gum PO PRN (13:25)
[2025-01-21] MEDS ORDERED: OLANZapine ODT 10 MG Tab PO ONE (13:25)
--- NOTE | 2025-01-21 14:31 | NUR ---
PT ADMITTED FROM ER, PT TANGETIAL AND PACING WHILE ALSO EATING DURING INTAKE, PT IS UNABLE TO RECALLY WHY OR HOW HE WENT TO THE ER. HE STATES HE WENT TO VISIT HIS STEPMOM AND THE POLICE WERE CALLED, PT ADAMANTLY STATES HE DID NOT TRY TO KILL HIMSELF, STATES HE DOES NOT FEEL SUICIDAL NOR HOMICIDAL, SPEECH IS RAPID AND PRESSURED, TANGENTIAL AND DIFFICULT TO FOLLOW. PT HAS DIFFICULTY ANSWERING OPEN ENDED QUESTIONS, HE IS ABLE TO ANSWER YES/NO QUESTIONS. HE INTERMITTENTLY WILL BEGIN TO SING SONGS RELATED TO A WORD THAT WAS SAID, PT INTERMITTENTLY SCREAMING "SANDY," AND MAKES MANDAEN STATEMENTS, PROFESSES LOVE AND APPRECIATION TO OTHER PEOPLE IN THE BUILDING. HE ALSO STATES HE IS ANXIOUS AND HE IS WORRIED ABOUT HIS SAFETY, HE FEELS HE IS IN DANGER "OUTSIDE," PT ALSO SEES ANOTHER PATIENT AND STATES HE BELONGS TO A GANG, THEN REFERS TO HIM "MY HOMIE."
[2025-01-21] MEDS ORDERED: Haloperidol Lactate Inj. 5 MG/ML Injection IM PRN (15:15)
[2025-01-21] MEDS ORDERED: HydrOXYzine Pamoate 50 MG Cap PO PRN ×2 (15:15→15:20)
[2025-01-21] MEDS ORDERED: Haloperidol 5 MG Tab PO PRN (15:20)
[2025-01-21] MEDS ORDERED: LORazepam 2 MG Tab PO PRN (15:20)
[2025-01-21] MEDS ORDERED: LORazepam 2 MG/ML 1ML Injection IM PRN (15:20)
[2025-01-21] MEDS ORDERED: Ibuprofen 600 MG Tab PO PRN (15:20)
[2025-01-21] MEDS ORDERED: Melatonin 3 MG Tab PO PRN (15:20)
[2025-01-21] MEDS ORDERED: DiphenhydrAMINE HCl 50 MG/ML 1ML Vial IM PRN (15:25)
[2025-01-21] MEDS ORDERED: Polyethylene Glycol 3350 17 gm PO PRN (15:25)
[2025-01-21] MEDS ORDERED: Acetaminophen 325 MG TABLET PO PRN (15:25)
[2025-01-21] MEDS ORDERED: OLANZapine ODT 10 MG Tab MM PRN (15:25)
[2025-01-21] MEDS ORDERED: Calcium Carbonate 500 MG Tab Chew PO PRN (15:25)
[2025-01-21] MEDS ORDERED: Aluminum Hydroxide 320MG/5ML 473 ML PO PRN (15:25)
[2025-01-21] MEDS ORDERED: DiphenhydrAMINE HCl 50 MG Cap PO PRN (15:25)
[2025-01-21] MEDS ORDERED: Ondansetron 4 MG SoluTab MM PRN (15:25)
[2025-01-21] MEDS ORDERED: TraZODone HCl 50 MG Tab PO PRN (15:30)
--- NOTE | 2025-01-21 17:59 | NUR ---
SHIFT SUMMARY PT AA&O TO PERSON AND PLACE. HE IS UNABLE TO RECALL EVENTS IN ER. SPEECH IS RAPID AND TANGENTAL. HE IS UNABLE TO ANSWER APPROPRIATELY. PT PACING HALLS. HE REQUIRES CONSISTANT REDIRECTION. HE IS EMOTIONALY LABILE. HE REPORTS BEING SCARED AND NOT FEELING SAFE. HE ESCALATED TOWARD THE END OF SHIFT AND REQUIRED A B52. HE IS NOW RESTING IN THE SENSORY ROOM. WILL CONTINUE POC
[2025-01-21 20:07] VITALS: BP 106/75
[2025-01-21] MEDS ORDERED: OLANZapine 10 MG Tab PO SCH (21:00)
[2025-01-21] MEDS ORDERED: Lithium Carbonate 300 MG TabCR PO SCH ×2 (21:00)
[2025-01-21] MEDS ORDERED: Divalproex Sodium 250 MG TABLET.DR PO SCH (21:00)
--- NOTE | 2025-01-22 05:06 | NUR ---
SHIFT SUMMARY: PATIENT WAS AWAKE IN THE DAY ROOM AT THE BEGINNING OF THE SHIFT. HE CAME OUT AND PACED UP AND DOWN THE HALLWAYS, STOPPING TO GREET STAFF AND PEERS. HE STATED TO THEM HOW MUCH HE LOVED THEM AND SANDY. HE WAS FRIENDLY AND POSITIVE. HE DENIED ANY THOUGHTS OF SELF HARMING OR SUICIDAL IDEATION. HE PARTICIPATED IN SNACK AND THEN WENT BACK TO THE DAY ROOM, CONTINUING TO COME OUT AND GREET STAFF. HE GREETED THE NEW PATIENT BY NAME AND STATED HE KNEW HER. HE WAS COMPLIANT WITH EVENING MEDICATIONS. HE GOT UP X1 DURING SENIOUR INSIGHT MANAGER AND STATED HE WAS HAVING A HARD TIME SLEEPING. HE WAS GIVEN A VISTARIL WHICH WAS EFFECTIVE. OTHERWISE, ONCE HE WENT TO BED AFTER THE VISTARIL, HE WAS NOTED TO BE RESTING QUIETLY WITH EYES CLOSED AND RESPIRATIONS CONFIRMED. CONTINUING TO MONITOR FOR SAFETY WITH Q15 MINUTE CHECKS.
[2025-01-22 07:04] VITALS: BP 130/94
[2025-01-22 07:25] LABS: Alanine Aminotransfer (ALT/SGP 80 U/L (12-78); Albumin, Blood 3.5 g/dL (3.4-5.0); Albumin/Globulin Ratio 0.9 (0.8-1.8); Alk Phos 53 U/L (50-136); Anion Gap 8 mmol/L (3-11); Aspartate Aminotrans (AST/SGOT 73 U/L (12-37); Bilirubin, Total 0.3 mg/dL (0.1-1.0); Blood Urea Nitrogen 16 mg/dL (8-24); Bun/Creatinine Ratio 20.2 (12.0-20.0); CHOL/HDL RATIO 3.9; CO2, Blood 28 mmol/L (21-32); Calcium, Blood 9.3 mg/dL (8.5-10.1); Chloride, Blood 105 mmol/L (98-108); Cholesterol 225 mg/dL (50-200); Creatinine, Blood 0.79 mg/dL (0.60-1.20); Globulin, Blood 3.8 g/dL (2.2-4.0); Glomerular Filtration Rate 126 (60-); Glucose, Blood 106 mg/dL (70-99); HDL Cholesterol 57 mg/dL (>39); LDL/HDL RATIO 2.4; Low Density Lipoprotein Chol 137 mg/dL (0-110); Potassium, Blood 4.1 mmol/L (3.5-5.5); Sodium, Blood 137 mmol/L (136-145); Total Protein, Blood 7.3 g/dL (6.4-8.2); Triglycerides 155 mg/dL (30-140); Valproic Acid 33.6 ug/mL (50.0-100.0); Very Low Density Lipoprot Chol 31 mg/dL (6-28)
[2025-01-22] MEDS ORDERED: Multivitamins 1 Tab PO SCH (09:00)
[2025-01-22] MEDS ORDERED: ClonazePAM 1 MG Tab PO ONE (12:05)
[2025-01-22] MEDS ORDERED: ClonazePAM 1 MG Tab PO PRN (12:55)
--- NOTE | 2025-01-22 14:20 | NUR ---
PT BEHAVIORS ESCALATING WITH INCREASED MILIEU ACTIVITY AND SPEKING WITH MD. PT SPEECH RAPID AND TANGENTAL. VOLUME INCREASED. RECIEVED ONE TIME ORDER OF KLONAPIN 2MG NOW THEN KLONOPIN BID PRN. MEDICATION EFFECTIVE FOR A SHORT TIME, THEN PT BEGAN ESCALATING AGAIN. HE TRIED TO EAT A PLASTIC BALL, REPORTED FEELING UNSAFE, PT PACING THE HICKMAN SINGING LOUDLY. PT OFFERED ORAL BENADRYL, ATIVAN, AND HALODOL. HE WAS AGREEABLE. PT NOW RESTING IN THE SENSORY ROOM LISTENING TO MUSIC. WILL CONTINUE POC
--- NOTE | 2025-01-22 18:14 | NUR ---
PT SLEPT UNTIL APPROX. 1730. HE HAS BEEN CALM. HE SPOKE WITH TANK STAVE ASSEMBLER AND ATE DINNER
--- NOTE | 2025-01-22 18:15 | NUR ---
"Spiritual Care Visit | Pt. request After recieving a referral for spiritual care an attempt to visit the Pt. was made around 1600. Staff informed communicable disease specialist that the Pt. was sleeping. A plan was made to return at 1730. Arrive as scheduled met with Pt. in a meeting room. Pt. is finishing his dinner as we meet. Pt. welcomes discussion and asks questions, but does not always allow for a proper response. After Pt finished his dinner matters of anita and belief are considered at the Pts. request. It is not clear to this communicable disease specialist that the Pt. was interested in clarity or answers, but that he mostly had someone to talk to. In oreder to attempt to give the Pt. an opportunity to focus, this communicable disease specialist gave the Pt. a time limitation. Pt. displayed evidence of respecting this boundary. Before we ended we prayed together. Pt. verbalized gratitude for the spiritual care visit."
[2025-01-22 19:53] VITALS: BP 127/86
[2025-01-22] MEDS ORDERED: Lithium Carbonate 450 MG TabCR PO SCH (21:00)
[2025-01-22] MEDS ORDERED: Divalproex Sodium 500 MG TABLET.DR PO SCH (21:00)
--- NOTE | 2025-01-23 04:47 | NUR ---
SHIFT SUMMARY: PATIENT WAS IN THE HALLWAY AT THE BEGINNING OF THE SHIFT, TALKING AND PACING. HE STATED THAT HE HAS "ADHD" AND THAT HE NEEDS "IN THIS ORDER: ADDERALL, RITALIN OR STRATTERA, IN THAT ORDER, THAT'S MY ORDER OF PREFERENCE." HE WAS INAPPROPRIATELY SEXUAL WITH COMMENTS TOWARD YOUNGER FEMALE PEERS, BUT WAS REDIRECTABLE. HE WATCHED TELEVISION FOR A TIME, AND SAT IN THE DAY ROOM LISTENING TO MUSIC ON THE HEADPHONES. HE PARTICIPATED IN SNACK, AND WAS MEDICATION COMPLIANT. HE INTERACTED WITH NEW MALE PEER WHOM HE KNEW FROM A PRIOR VISIT, AND HIS PRESENCE AMPED UP THE PEER, SO HE WAS REDIRECTED SEVERAL TIMES. HE WANTED PRNS, AND WAS GIVEN VISTARIL AND A SECOND TRAZODONE. HE WAS STILL UP AND DOWN FOR A TIME, BUT WAS ABLE TO SETTLE IN AND MOSTLY REST THROUGH THE REMAINDER OF THE SHIFT, WITH EYES CLOSED AND RESPIRATIONS CONFIRMED. HE DENIED SUICIDAL IDEATION OR THOUGHTS OF SELF HARMING THIS SHIFT. CONTINUING TO MONITOR FOR SAFETY WITH Q15 MINUTE CHECKS.
[2025-01-23] MEDS ORDERED: LORazepam 2 MG Tab PO PRN (08:00)
[2025-01-23] MEDS ORDERED: ClonazePAM 1 MG Tab PO SCH ×2 (09:00→21:00)
[2025-01-23] MEDS ORDERED: RisperiDONE 1 MG Tab PO SCH (09:00)
[2025-01-23 09:48] LABS: Albumin, Blood 3.7 g/dL (3.4-5.0); Albumin/Globulin Ratio 0.9 (0.8-1.8); Bilirubin, Total 0.3 mg/dL (0.1-1.0); Bun/Creatinine Ratio 26.5 (12.0-20.0); Calcium, Blood 9.7 mg/dL (8.5-10.1); Creatinine, Blood 0.83 mg/dL (0.60-1.20); Potassium, Blood 4.4 mmol/L (3.5-5.5); Total Protein, Blood 7.7 g/dL (6.4-8.2)
[2025-01-23 09:50] LABS: Lithium 0.55 mmol/L (0.60-1.20)
--- NOTE | 2025-01-23 16:33 | NUR ---
SHIFT SUMMARY PT A/O X3; DENIES SI, HI, AND HALLUCINATIONS. PT'S AFFECT IS ELEVATED AND HIS SPEECH IS RAPID/TANGENTIAL. PT STRUGGLES WITH RESPECTING OTHER PATIENTS'/STAFF BOUNDARIES, BUT IS REDIRECTABLE. HE PARTICIPATES IN GROUPS AND MEALS. PT TOOK HIS MEDICATION THIS SHIFT WITH A LOT OF ENCOURAGEMENT. HE CONTINUES TO BE MONITORED VIA Q15 ROUNDING FOR SAFETY AND WELLNESS.
[2025-01-23] MEDS ORDERED: Lithium Carbonate 300 MG TabCR PO SCH (21:00)
[2025-01-23 21:10] VITALS: BP 128/82
--- NOTE | 2025-01-23 22:20 | NUR ---
PATIENT MEDICAL NOTE: PATIENT CAME UP TO THE NURSING BUBBLE AT 2130 AND STATED THAT HE HAD PUT A NURSING GLOVE UP INSIDE HIS RECTUM "DURING GROUP" AND THAT HE COULD NOT GET IT OUT. HE DENIED PAIN. HE STATED THAT HE WANTED THE MALE NURSE TO DIG IT OUT. MALE NURSE EXPLAINED THAT HE WOULD NEED TO GO TO THE EMERGENCY ROOM. HE SAID "THAT'S FINE". IT WAS THEN EXPLAINED THAT HE IS ON A HOLD AND CAN'T JUST GO THERE. OFFICE TECHNOLOGY INSTRUCTOR CALLED THE HOSPITALIST, WHO STATED THAT HE WILL ORDER A CT FOR TOMORROW, UNLESS PATIENT HAS PAIN OR DISTRESS. CONTINUING TO MONITOR PATIENT Q15 MINUTES FOR HEALTH AND SAFETY.
--- NOTE | 2025-01-23 23:39 | NUR ---
HOSPITALIST NOTIFIED AT 2223 OF PATIENT REPORTING HE INSERTED A GLOVE INTO HIS RECTUM EARIELER TODAY. DR WARD ORDERED A CT FOR THE AM UNLESS ISSUES ARISE THEN WILL GO TO GET CT DONE. PT IS ASLEEP AT THIS TIME AND APPEARS TO BE COMFORTABLE. WILL CONTINUE TO MONITOR
--- NOTE | 2025-01-24 04:36 | NUR ---
SHIFT SUMMARY: PATIENT WAS IN THE MILIEU TALKING WITH PEERS AND STAFF AT THE BEGINNING OF THE SHIFT. HE WAS NOTED TO BE TALKING INAPPROPRIATELY AT TIMES, BUT WAS EASILY REDIRECTED. HOWEVER, HE WOULD GET BACK TO INAPPROPRIATE SUBJECTS QUICKLY. HE SPENT SOME TIME IN THE SENSORY ROOM WITH FEMALE PEER, DOOR OPEN. HE PARTICIPATED IN SNACK AT 1999, AND WAS COMPLIANT WITH EVENING MEDICATIONS. HE APPROACHED MALE RN AND ASKED TO SPEAK TO HIM. HE TOLD MALE RN THAT HE HAD PUSHED A GLOVE UP HIS RECTUM AND COULD NOT GET IT OUT. HE STATED THAT HE GOT THE GLOVE "DURING GROUP" FROM THE "GARBAGE CAN IN THE DINING AREA". MANAGER TECHNICAL TRAINING CALLED DR ALCALA AND ASKED WHAT ORDERS HE HAD. HE PLACED PATIENT ON A 1:1. HE TOOK HIM OFF A HALF HOUR LATER, AND STATED TO CALL THE HOSPITALIST AND FOLLOW HIS ADVICE. HOSPITALIST DR HINES ORDERED A CT TO BE OBTAINED IN THE MORNING. PATIENT ASKED FOR MIRALAX BEFORE CONFESSING TO PLACING A GLOVE UP HIS RECTUM AND IT WAS GIVEN. HE WAS ASKED TO LET STAFF KNOW IF HE HAD ANY BOWEL ACTIVITY. HE DENIED SUICIDAL IDEATION. HE HAS BEEN EATING DEODORANT AND ACTING LIKE HE MIGHT SELF HARM, SO ITEMS WERE TAKEN FROM HIM, TO BE USED NEEDED. HE WOKE UP ABOUT 0330 AND STARTED COMING OUT TO ASK QUESTIONS. HE WAS PALE AND HAD DARK CIRCLES UNDER HIS EYES. THIS RN WALKED WITH PATIENT AND ASKED HIM TO BE FORTHCOMING ABOUT ANYTHING HE HAS DONE TO SELF HARM. HE STATED THAT "THE ONLY THING I DID WAS PUT A GLOVE UP MY BUTTHOLE". HE ASKED TO TAKE A SHOWER, AND SHOWER SUPPLIES WERE GIVEN. TWO STAFF WILL COLLECT THEM AND MAKE SURE EVERYTHING IS ACCOUNTED FOR WHEN HE IS DONE. CONTINUING TO CAREFULLY MONITOR AND KEEP TRACK OF BELONGINGS FOR PATIENT SAFETY.
--- NOTE | 2025-01-24 05:40 | NUR ---
MASS SCORE: PATIENT IS PRESENTING ANXIOUS AND LOOKING FOR SOMETHING TO DO. HE HAS A RECENT HISTORY OF EATING HIS DEODORANT, AND IT IS POSSIBLE THAT HE PLACED A GLOVE IN HIS RECTUM, DRANK HIS BODY WASH AND DRANK HIS MOUTHWASH. HE REQUESTED A KLONOPIN, AND THEY ARE SCHEDULED. HE IS RATED A 4 ON THE AGITATION SCALE EVIDENCED BY RESTLESSNESS LEADING TO POOR DECISION MAKING REGARDING THREAT OF SELF HARM. HE WAS THEREFORE GIVEN A ZYPREXA TO HELP HIM REGULATE AND CALM SELF.
[2025-01-24 06:31] LABS: BASOPHILS ABSOLUTE AUTO 0.05 K/mm3 (0.00-0.23); BASOPHILS PERCENT AUTO 1 % (0-2); EOSINOPHILS ABSOLUTE AUTO 0.28 K/mm3 (0.00-0.68); EOSINOPHILS PERCENT AUTO 4 % (0-6); Hematocrit 40.8 % (37.0-53.0); Hemoglobin 13.5 g/dL (13.5-17.5); IMMATURE GRAN ABSOLUTE AUTO 0.05 K/mm3 (0.00-0.10); IMMATURE GRAN PERCENT AUTO 1 % (0-1); LYMPHOCYTES ABSOLUTE AUTO 1.46 K/mm3 (0.84-5.20); LYMPHOCYTES PERCENT AUTO 18 % (21-46); MONOCYTES ABSOLUTE AUTO 0.96 K/mm3 (0.16-1.47); MONOCYTES PERCENT AUTO 12 % (4-13); Mean Corpuscular HGB 30.4 pg (26.0-34.0); Mean Corpuscular HGB Conc 33.1 g/dL (31.5-36.5); Mean Corpuscular Volume 92 fL (80-100); Mean Platelet Volume 10.7 fL (9.1-12.4); NEUTROPHILS ABSOLUTE AUTO 5.12 K/mm3 (1.96-9.15); NEUTROPHILS PERCENT AUTO 65 % (41-73); Platelet Count 230 K/mm3 (150-400); RDW Standard Deviation 44.2 fL (35.1-46.3); Red Blood Cell Count 4.44 M/mm3 (4.30-5.90); White Blood Cell Count 7.92 K/mm3 (4.00-11.30)
[2025-01-24 06:57] LABS: Bun/Creatinine Ratio 26.7 (12.0-20.0); Calcium, Blood 9.6 mg/dL (8.5-10.1); Creatinine, Blood 0.86 mg/dL (0.60-1.20); Potassium, Blood 3.9 mmol/L (3.5-5.5)
--- NOTE | 2025-01-24 08:34 | NUR ---
PT REFUSING MEDICATIONS THIS AM FOR THIS RN. PT EVENTUALLY TOOK MEDICATIONS FOR ADRIAN BAZAN WITH A LOT OF ENCOURAGEMENT AND PERSUASION. PT VISIBLY UPSET BY TAKING HIS MEDICATIONS. PT MAKING TOYS/POSSIBLE WEAPONS OUT OF OBJECTS IN HIS ROOM. PT BALLED UP WET PAPER INSIDE A MESH BRIEF AND TIED THE BRIEF IN A MANNER WHERE IT CAN BE A LIGATURE OR BE USED TO HIT SOMEONE. TOILETRIES AND OTHER ITEMS TAKEN FROM PATIENT'S ROOM IN ORDER TO MITIGATE. PT TO CT WITH MHA AND RN AT THIS TIME. SECURITY NOTIFIED.
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
--- NOTE | 2025-01-24 18:04 | NUR ---
SHIFT SUMMARY PT A/O X4; DENIES HI AND HALLUCINATIONS. PT SOMETIMES ENDORSES SI, BUT CURRENTLY DENIES. THIS MORNING PT DECLINED MEDICATION AND STATED "I DO NOT HAVE A REASON TO LIVE AND WOULDN'T MIND STAYING HERE FOR 6 MONTHS". PT PERSUADED TO TAKE MEDICATIONS. HE WENT TO CT THIS MORNING AFTER STATING THAT HE SHOVED A GLOVE UP HIS RECTUM. NO GLOVE WAS FOUND ON THE CT. PT ATTENDED ALL MEALS AND HAS BEEN ACTIVE ON THE [place]o. PT HAD A MOMENT OF INTENSE AGITATION WHICH WAS TRIGGERED BY ANOTHER PT'S BEHAVIOR. PT YELLING, KICKING SHIN, AND OVERALL DISRUPTIVE. PT TOOK PO ZYPREXA WITH GOOD EFFECT. HE IS CURRENTLY LISTENING TO MUSIC IN THE COURT YARD. HE CONTINUES TO BE MONITORED Q15.
--- NOTE | 2025-01-24 18:56 | NUR ---
PATIENT WAS IN THE SENSORY ROOM, i COULD SEE HIM ON THE CAMERA AND IT APPEARED HE WAS SCRIBBLING ON HIS JOURNAL WHILE BENT AT THE WAIST BUT IT APPEARED SUSPICIOUS. THE PHONE RANG AND IT WAS HOSPITAL STAFF ER STATING THAT THIS PATIENT CALLED AND SAID HE WAS CUTTING HIS WRIST WITH CARDBOARD AND A FLEXI PEN. THIS FRUIT WORKER WENT TO THE SENSORY ROOM AND PATIENT WAS COMING OUT OF THE SENSORY ROOM. I ASKED HIM TO SEE HIS WRIST. THE LEFT ARM HAD A FEW VERY SUPERFICIAL CLOSED SCRATCHES ABOUT1-1.5 INCH LONG. NO BLEEDING OR BRUISING. THE JOURNAL AND 2 FLEXI PENS WERE TAKEN FROM THE PATIENT AND HE WAS ASKED TO COME REQUEST THE ITEMS WHEN HE'D LIKE TO USE THEM, IN THE PRESENCE OF STAFF. CALLED
--- NOTE | 2025-01-24 19:30 | NUR ---
PATIENT CONTINUES TO BE YELLING AT STAFF, DIFFICULT TO FOLLOW CONVERSATION AND TO REDIRECT OR CALM SELF ATIVAN AND BENADRYL GIVEN PO, PATIENT BITING CUP AFTER TAKING PO MEDICATIONS. ABLE TO GET PATIENT TO SPIT THE PIECE OF CUP OUT EASILY. DOCTOR KARY NOTIFIED AND HALDOL CHANGED FROM A ONE TIME DOSE TO PRN WITH ATIVAN AND BENADRYL. CONTINUE TO MONITOR Q15MIN
[2025-01-24 22:09] VITALS: BP 139/90
[2025-01-25] MEDS ORDERED: Haloperidol 5 MG Tab PO PRN ×2 (03:55→15:20)
[2025-01-25] MEDS ORDERED: Haloperidol Lactate Inj. 5 MG/ML Injection IM PRN ×2 (03:55→15:15)
--- NOTE | 2025-01-25 04:21 | NUR ---
SHIFT SUMMARY PATIENT AGITATED PACING IN [place] YELLING AT STAFF "I DON'T TRUST YOU" DIFFICULT TO GET A STRAIGHT ANSWER TO QUESTIONS. PATIENT HAVING FLIGHT OF IDEAS, AND HAVING DIFFICULT TIME CALMING SELF (MASS 10) MEDICATED WITH ATIVAN AND BENADRYL, (HALDOL NOT AVAILABLE) DOCTOR KARY NOTIFIED AND NEW ORDERS OBTAINED FOR HALDOL. PATIENT MORE RELAXED AND COOPERATIVE DURING SNACK TAKING PO MEDICATIONS WITHOUT DIFFICULTY. DENIES SI, HI, OR AVH. ADL'S WITH SUPERVISION DUE TO PATIENT ATTEMPTING SELF HARM WITH CUTTING USING SOFT FLEXI PEN, SCRATCHES NO LONGER VISIBLE. PATIENT IN BED SLEEPING AROUND 2130, AWAKE UP TO NURSES STATION AT 0400, GOING BACK TO BED AFTER DRINK OF WATER. CONTINUE TO MONITOR Q15MIN.
--- NOTE | 2025-01-25 09:06 | NUR ---
PT INITIALLY REFUSED MEDICATIONS THIS AM WHEN HE REALIZED HE WASN'T RECEIVING ATIVAN. STATES HE WANTS TO RECEIVE THAT MEDICATION OR HE WILL NOT TAKE ANY OF HIS OTHER MEDS. INSTRUCTED THERE IS NO INDICATION FOR ATIVAN AT THIS TIME - PT EXPRESSES FRUSTRATION WITH THIS STATEMENT AND THEN REFUSED MEDS. AFTER REAPPROACHING 10 MINUTES LATER PATIENT AGREED TO TAKE AM MEDS AND APOLOGIZED FOR EARLIER OUTBURST.
[2025-01-25 10:38] LABS: Albumin, Blood 3.6 g/dL (3.4-5.0); Bilirubin, Total 0.5 mg/dL (0.1-1.0); Bun/Creatinine Ratio 25.2 (12.0-20.0); Calcium, Blood 9.3 mg/dL (8.5-10.1); Creatinine, Blood 0.83 mg/dL (0.60-1.20); Globulin, Blood 3.6 g/dL (2.2-4.0); Potassium, Blood 3.9 mmol/L (3.5-5.5); Total Protein, Blood 7.2 g/dL (6.4-8.2)
[2025-01-25 10:40] LABS: Lithium 0.61 mmol/L (0.60-1.20)
--- NOTE | 2025-01-25 11:47 | NUR ---
PT MEDICATED WITH PO ATIVAN FOR ESCALATING BEHAVIORS, DISRUPTING PEERS, INCREASED ANXIETY.
--- NOTE | 2025-01-25 17:24 | NUR ---
SHIFT SUMMARY: ASSUMED CARE FROM PRIOR NURSE. PATIENT IS A/O X3 ABLE TO VOICE HIS NEEDS. GIANCARLO IS DEMONSTRATING FORTINO AND OFTEN NEEDS TO BE REDIRECTED. HE WAS QUITE ANIMATED TODAY AND NEEDED PRN MEDS AND 1:1 TIME. SECURITY WAS CALLED AT ONE POINT HE WAS RUNNING THE HALLS AND YELLING QUITE LOUDLY. HE WAS REQUESTING TO BE DISCHARGED HOWEVER, HE WAS DESTRATED OFF THIS TOPIC. HE CURRENTLY DENIES ANY SI, VH OR AH. HE HAS BEEN COMPLIANT WITH HIS POC AND MEDICATIONS TODAY. HE OFTEN NEEDS CUES TO WHAT IS APPROPRITE BEHAVIOR AND LAUNGUAGE. WE WILL CONTINUE TO MONITOR EVERY 15 MIN AND WHEN HE NEEDS TO BE REDIRECTED.
[2025-01-25] MEDS ORDERED: RisperiDONE 1 MG Tab PO SCH (21:00)
[2025-01-25] MEDS ORDERED: Lithium Carbonate 300 MG TabCR PO SCH (21:00)
[2025-01-25 22:53] VITALS: BP 138/93
--- NOTE | 2025-01-26 05:22 | NUR ---
SHIFT SUMMARY PT AGITATED AT START OF SHIFT MAKING LOUD NOISES W/ RAPID SPEECH AND DIFFICULTY REDIRECTING, GIVEN 2100 MEDS AND PT BECAME MORE REDIRECTABLE AND WENT TO SLEEP AT 2300~. PT DENIED SI, HI, AVTH. NO ACUTE EVENTS SINCE START OF SHIFT. WENT TO SNACK TIME AND DAY AREA, APPEARS TO GET ALONG WELL W/ PEERS.
[2025-01-26] MEDS ORDERED: ClonazePAM 0.5 MG Tab PO SCH (14:00)
--- NOTE | 2025-01-26 18:15 | NUR ---
Shift Summary Pt A/O and denies SI, HI, hallucinations. Pt somewhat more subdued this AM. His voice was quieter and speech not quite as pressured. Pt still has delusions of grandeur and overabundance of thought. Pt needs a lot of redirection, but is redirectable and is agreeable to taking medications at this time. Pt attended some groups but at times needs extra supervision to keep him on task and to mitigate activities. For example, pt got up during group and began to go through the trash can. Pt's behavior did escalate this afternoon and he punched his bathroom door. Bathroom door unharmed. Pt treated per EMR x2 with good effect. Please see MASS scores. Pt continues to be monitored Q15 for safety and wellness.
[2025-01-26] MEDS ORDERED: RisperiDONE 1 MG Tab PO SCH (21:00)
[2025-01-26] MEDS ORDERED: ClonazePAM 1 MG Tab PO SCH (21:00)
--- NOTE | 2025-01-26 23:52 | NUR ---
MID-SHIFT SUMMARY PT PRESENT IN MILIEU AT START OF SHIFT. SPEECH IS PRESSURED WITH TANGENTIAL CONVERSATION. PT IS REDIRECTABLE. HE DENIES ANY SI, HI, OR HALLUCINATIONS. NO INTERNAL STIMULI NOTED. PT WAS COMPLIANT WITH MEDICATIONS AFTER SOME ENCOURAGEMENT. HE HAD EVENING SNACK AND WENT TO BED AROUND 2044. Q15 MINUTE CHECKS TO CONTINUE PER PT SAFETY/PROTOCOL.
[2025-01-27 00:23] VITALS: BP 139/86
--- NOTE | 2025-01-27 05:22 | NUR ---
END OF SHIFT UPDATE NO CHANGES SINCE MID-SHIFT SUMMARY. PT IS STILL IN BED AT THIS TIME. Q15 MINUTE CHECKS TO CONTINUE PER PT SAFETY.
[2025-01-27 08:03] LABS: Albumin, Blood 3.4 g/dL (3.4-5.0); Albumin/Globulin Ratio 0.9 (0.8-1.8); Bilirubin, Total 0.2 mg/dL (0.1-1.0); Bun/Creatinine Ratio 24.5 (12.0-20.0); Creatinine, Blood 0.82 mg/dL (0.60-1.20); Globulin, Blood 3.6 g/dL (2.2-4.0); Potassium, Blood 4.2 mmol/L (3.5-5.5)
[2025-01-27 08:21] LABS: Lithium 0.98 mmol/L (0.60-1.20)
[2025-01-27 08:25] VITALS: BP 139/94
--- NOTE | 2025-01-27 09:34 | NUR ---
Pt had an incident during group in which he had to be asked to leave the group room. Pt appeared agitated, he was raising his voice, and speech was pressured. Pt medicated per EMR per monorail charger operator. Pt redirected to the sensory room with staff and coping skills were practiced until pt was able to be de-escalated.
--- NOTE | 2025-01-27 18:00 | NUR ---
SHIFT SUMMARY PT A/O X4; DENIES SI, HI, AND HALLUCINATIONS. THIS AM HE HAD A VERBAL OUTBURST/MOMENT OF AGITATION DURING GROUP AND HE WAS TREATED PER EMR. ASIDE FROM THE OUTBURST THIS MORNING, PT'S BEHAVIOR HAS IMPROVED. HE IS CALMER, REDIRECTABLE, AND TOOK A NAP THIS SHIFT. PT COMPLIANT WITH MEDICATIONS WELL. HE ATTENDED ALL MEALS AND MILEU ACTIVITIES.
--- NOTE | 2025-01-27 19:13 | NUR ---
PATIENT WAS DEMONSTRATING FORTINO AND INVADING OTHER PATIENT'S SPACE. HE VERBALIZES INCREASED ANXIETY AND "UNCONTROLLED RACING THOUGHTS". PRN ZYPREA GIVEN PER ORDERS.
--- NOTE | 2025-01-27 22:02 | NUR ---
NOTIFIED BY PATIENT THAT HE COULD NOT REDUCE HIS INGUINAL HERNIA AND HE WAS HAVING DIFFICULTY URINATING. 2 RN EXAM DONE WHICH REVEALED HARD LUMP IN RIGHT INGUINAL AREA WHICH COULD NOT BE PUSHED IN OR MADE SMALLER. PT STATES HE FEELS PAIN DOWN INTO HIS SCROTUM. PT HAD VISIBLE SIGNS OF DISCOMFORT DURING EXAM. NOTIFIED AND ORDERED HOSPITALIST CONSULT. MESSAGE LEFT WITH BARN AND PROPERTY MANAGER HOSPITALIST REGARDING NEED FOR CONSULT AND SYMPTOMS EXHIBITED.
--- NOTE | 2025-01-27 23:26 | NUR ---
SPOKE WITH DR. SCHULER EARLIER REGARDING PT HERNIA. STATES IF HE HAS CONTINUED PAIN OR INABILITY TO URINATE TO HAVE HIM COME TO ER FOR CT SCAN. PT CURRENTLY SLEEPING. STATES OK TO WAIT TO BE SEEN SINCE HE IS SLEEPING COMFORTABLY CURRENTLY, BUT IF SYMPTOMS INCREASE IN SEVERITY OR RETURN PREVIOUS TO HAVE PATIENT SEEN IN ER.
--- NOTE | 2025-01-27 23:56 | NUR ---
SHIFT SUMMARY: PT HAS SLEPT SINCE EXAM NOTED EARLIER. REPORT OFF TO ADRIAN BOB.
--- NOTE | 2025-01-28 04:09 | NUR ---
END OF SHIFT UPDATE ASSUMED CARE OF PT AT 0030. NO ACUTE CHANGES. PT IS STILL CURRENTLY IN BED AND APPEARS TO BE SLEEPING/RESTING COMFORTABLY. Q15 MINUTE CHECKS TO CONTINUE PER PT SAFETY.
[2025-01-28 08:33] VITALS: BP 132/83
--- NOTE | 2025-01-28 11:33 | NUR ---
SHIFT ASSESSMENT: PT DENIED SI, HI, AVH, ANXITY AND PAIN. PT HAS BEEN ATTENDING GROUPS AND IS ACTIVE IN THE MILIEU. HE RATED HIS MOOD , "GOOD ECSTATIC." PT AT ONE TIME THIS MORNING WAS LIKING THE DINNING ROOM WINDOW AND ACTING LIKE HE WAS MAKING OUT WITH IT. HE WAS ASKED TO STOP THAT BEHAVIOR. HE DID COMPLY WITH THE DIRECTIVE.
--- NOTE | 2025-01-28 12:50 | NUR ---
IMPORTANT DISCHARGE INFORMATION IF GIANCARLO GETS DISCHARGED/LEAVES HE DOES HAVE A FOLLOW UP APPOINTMENT WITH NEW PCP DR. PARKS AT THE [facility] ON 02/09/25 AT 10:30 AM. [facility] CAN BE CALLED TO TAKE HIM TO [facility]. [facility] PHONE: [facility] PHONE: ADDRESS: [address] OR [facility]
--- NOTE | 2025-01-28 17:48 | NUR ---
PT CAME TO THE DESK ASKING TO GO AMA, HE WAS ASKED TO WAIT UNTIL TOMORROW TO LEAVE. HE WAS OFFERED OLANZIPINE AND IT WAS REFUSED. HE SAYS THAT HE WILL NOT BE TAKING ANY MEDS IN THE FUTURE. HE WENT IN AND ATE DINNER AND HAS NOT MENTIONED LEAVING IN THE LAST 30 MINUTES.
[2025-01-28 20:27] VITALS: BP 131/90
--- NOTE | 2025-01-29 04:24 | NUR ---
SHIFT SUMMARY PT IN MILIEU AT START OF SHIFT, INTERACTS WT PEERS AND STAFF. REQUIRES REDIRECTION FREQUENTLY. HE DENIES ANY SI, HI, THOUGHTS OF SELF HARM OR HALLUCINATIONS. MOOD IS ELEVATED AND PT NOTED TO HAVE A MASS SCORE OF 6. HE RECEIVED PRN ZYPREXA. PT INITIALLY STATED HE WAS NOT GOING TO TAKE HIS EVENING MEDS BECAUSE HE WILL NOT BE ABLE TO AFFORD THEM WHEN HE IS DISCHARGED. AFTER SPEAKING WITH PT HE WAS COMPLIANT WITH MEDICATIONS. HE HAS BEEN RESTING/SLEEPING THROUGHOUT THE NIGHT. Q15 MINUTE CHECKS TO CONTINUE PER PT SAFETY.
[2025-01-29 07:48] VITALS: BP 123/97
--- NOTE | 2025-01-29 12:07 | NUR ---
IMPORTANT DISCHARGE INFORMATION PATIENT DISCHARGING TODAY. [facility] TO PICK GIANCARLO UP AT 4PM. HE WILL BE TAKEN TO THE [facility] FOR HOUSING. GIANCARLO IS ABLE TO VERBALIZE AN UNDERSTANING OF TODAYS DISCHARGE PLANS. FOLLOW UP APPOINTMENT WITH NEW PCP AT [facility]. DR. PARKS ON 02/12/25 AT 10:30AM, PLEASE REMIND GIANCARLO TO ATTEND AND USE [facility] TO GET THERE. PHARMACY: [facility] [phone]
[2025-01-29] MEDS ORDERED: [UNRECOGNIZED DRUG - CODE] PO (13:16)
[2025-01-29] MEDS ORDERED: MELA3 PO (13:16)
[2025-01-29] MEDS ORDERED: MULVITA PO (13:17)
[2025-01-29] MEDS ORDERED: NICO2 PO (13:19)
[2025-01-29] MEDS ORDERED: OLANZAPINE ODT10 MG PO (13:23)
[2025-01-29] MEDS ORDERED: RISP4 PO (13:27)
[2025-01-29] MEDS ORDERED: OLAN10A MM (13:34)
[2025-01-29] MEDS ORDERED: CLON1 PO (13:39)
--- NOTE | 2025-01-29 16:55 | NUR ---
DISCHARGE NOTE. PT DISCHARGED. STATED CLEAR UNDERSTNDING OF DISCHARGE INSTRUCTIONS. PT BELONGINGS RETURNED BY [facility]. PT AMBULATED OUT OF THE UNIT WITHOUT DIFFICULTY TO AWAITING TRANSPORT WITH DISCHARGE INSTRUCTIONS, RX AND BELONGINGS IN HAND.
[2025-02-04] MEDS ORDERED: FLUOXETINE HCL60 MG PO (12:31)
== END 2025-01-29 16:43 | disposition home or self-care (01) | DRG 885 ==
LOC: BHU 09:46
PROVIDERS: Internal Medicine; ADMIT Student in an Organized Health Care Education/Training Program
DX: F31.2 Bipolar disorder, current episode manic severe with psychotic features (principal); T18.5XXA Foreign body in anus and rectum, initial encounter; K58.9 Irritable bowel syndrome, unspecified; F12.90 Cannabis use, unspecified, uncomplicated; T65.892A Toxic effect of other specified substances, intentional self-harm, initial encounter; Z87.19 Personal history of other diseases of the digestive system; Z79.1 Long term (current) use of non-steroidal anti-inflammatories (NSAID); Z79.899 Other long term (current) drug therapy; X58.XXXA Exposure to other specified factors, initial encounter; W44.8XXA Other foreign body entering into or through a natural orifice, initial encounter
CPT/HCPCS: 36415; 72192; 80048; 80053; 80061; 80164; 80178; 82140; 83036; 85025; A9270; J1200; J1630

== ENCOUNTER 2025-02-12 19:56 | Emergency (ER) | payer OTHER ==
[~2025-02-12] VITALS: Ht 172.7 cm; Wt 63.5 kg
[~2025-02-12 19:56] MED LIST changes: +CLON1 PO; +MULVITA PO; +NICO2 PO; +OLAN10A MM; +OLANZAPINE ODT10 MG PO; +RISP4 PO; +[UNRECOGNIZED DRUG - CODE] PO
[2025-02-12 20:05] VITALS: BP 118/67
[2025-02-12 20:28] LABS: BASOPHILS ABSOLUTE AUTO 0.05 K/mm3 (0.00-0.23); BASOPHILS PERCENT AUTO 1 % (0-2); EOSINOPHILS ABSOLUTE AUTO 0.51 K/mm3 (0.00-0.68); EOSINOPHILS PERCENT AUTO 5 % (0-6); Hematocrit 39.9 % (37.0-53.0); Hemoglobin 13.6 g/dL (13.5-17.5); IMMATURE GRAN ABSOLUTE AUTO 0.08 K/mm3 (0.00-0.10); IMMATURE GRAN PERCENT AUTO 1 % (0-1); LYMPHOCYTES ABSOLUTE AUTO 2.11 K/mm3 (0.84-5.20); LYMPHOCYTES PERCENT AUTO 22 % (21-46); MONOCYTES ABSOLUTE AUTO 0.77 K/mm3 (0.16-1.47); MONOCYTES PERCENT AUTO 8 % (4-13); Mean Corpuscular HGB 30.6 pg (26.0-34.0); Mean Corpuscular HGB Conc 34.1 g/dL (31.5-36.5); Mean Corpuscular Volume 90 fL (80-100); Mean Platelet Volume 9.9 fL (9.1-12.4); NEUTROPHILS PERCENT AUTO 63 % (41-73); Platelet Count 287 K/mm3 (150-400); RDW Coefficient Variation 12.8 % (11.7-14.2); Red Blood Cell Count 4.44 M/mm3 (4.30-5.90); White Blood Cell Count 9.52 K/mm3 (4.00-11.30)
[2025-02-12 20:39] LABS: Source, Urine Voided
[2025-02-12 20:43] LABS: Bilirubin, Urine Neg (Neg); Blood, Urine Neg (Neg); Glucose Qualitative, Urine Neg (Neg); Ketones, Urine Neg (Neg); Leukocyte Esterase, Urine Neg (Neg); Nitrite, Urine Neg (Neg); Protein, Urine Neg (Neg); Urobilinogen, Urine NORM (Normal); pH, Urine 6.5 (5.0-8.0)
[2025-02-12 20:45] LABS: Appearance, Urine Clear (Clear); Color, Urine Yellow (P-Yellow)
[2025-02-12 21:05] LABS: Albumin, Blood 3.5 g/dL (3.4-5.0); Bilirubin, Total 0.2 mg/dL (0.1-1.0); Bun/Creatinine Ratio 14.7 (12.0-20.0); Calcium, Blood 8.7 mg/dL (8.5-10.1); Creatinine, Blood 0.89 mg/dL (0.60-1.20); Globulin, Blood 3.5 g/dL (2.2-4.0); Potassium, Blood 3.9 mmol/L (3.5-5.5)
== END 2025-02-13 01:29 | disposition left against medical advice (07) ==
LOC: ER 19:56
PROVIDERS: Emergency Medicine
DX: Z53.21 Procedure and treatment not carried out due to patient leaving prior to being seen by health care provider (principal)
CPT/HCPCS: 80053; 81003; 85025; 93005; 93010

== ENCOUNTER 2025-03-05 00:11 | Observation (INO) | payer OTHER ==
[~2025-03-05] VITALS: Ht 172.7 cm; Wt 68.0 kg
[2025-03-05 00:56] LABS: BASOPHILS ABSOLUTE AUTO 0.03 K/mm3 (0.00-0.23); BASOPHILS PERCENT AUTO 0 % (0-2); EOSINOPHILS ABSOLUTE AUTO 0.48 K/mm3 (0.00-0.68); EOSINOPHILS PERCENT AUTO 6 % (0-6); Hemoglobin 14.4 g/dL (13.5-17.5); IMMATURE GRAN ABSOLUTE AUTO 0.02 K/mm3 (0.00-0.10); IMMATURE GRAN PERCENT AUTO 0 % (0-1); LYMPHOCYTES ABSOLUTE AUTO 2.46 K/mm3 (0.84-5.20); LYMPHOCYTES PERCENT AUTO 30 % (21-46); MONOCYTES PERCENT AUTO 7 % (4-13); Mean Corpuscular HGB 30.5 pg (26.0-34.0); Mean Corpuscular HGB Conc 34.3 g/dL (31.5-36.5); Mean Corpuscular Volume 89 fL (80-100); Mean Platelet Volume 10.1 fL (9.1-12.4); NEUTROPHILS ABSOLUTE AUTO 4.63 K/mm3 (1.96-9.15); NEUTROPHILS PERCENT AUTO 56 % (41-73); Platelet Count 303 K/mm3 (150-400); RDW Coefficient Variation 12.6 % (11.7-14.2); RDW Standard Deviation 41.5 fL (35.1-46.3); Red Blood Cell Count 4.72 M/mm3 (4.30-5.90); White Blood Cell Count 8.22 K/mm3 (4.00-11.30)
[2025-03-05 01:14] LABS: Acetaminophen, Random 49.6 ug/mL (10.0-30.0); Alanine Aminotransfer (ALT/SGP 26 U/L (12-78); Albumin, Blood 3.7 g/dL (3.4-5.0); Albumin/Globulin Ratio 0.9 (0.8-1.8); Alk Phos 61 U/L (50-136); Anion Gap 14 mmol/L (3-11); Aspartate Aminotrans (AST/SGOT 17 U/L (12-37); Bilirubin, Total 0.5 mg/dL (0.1-1.0); Blood Urea Nitrogen 11 mg/dL (8-24); Bun/Creatinine Ratio 11.3 (12.0-20.0); CO2, Blood 20 mmol/L (21-32); Calcium, Blood 8.5 mg/dL (8.5-10.1); Chloride, Blood 103 mmol/L (98-108); Creatinine, Blood 0.97 mg/dL (0.60-1.20); Ethanol (Alcohol), Blood, Med 4 mg/dL; Globulin, Blood 4.1 g/dL (2.2-4.0); Glomerular Filtration Rate 111 (60-); Glucose, Blood 105 mg/dL (70-99); Potassium, Blood 3.5 mmol/L (3.5-5.5); Salicylate <1.7 mg/dL (2.8-20.0); Sodium, Blood 133 mmol/L (136-145); Total Protein, Blood 7.8 g/dL (6.4-8.2)
[2025-03-05] MEDS ORDERED: NS 1,000 ML IV SCH (04:20)
[2025-03-05 04:30] VITALS: BP 106/65
[2025-03-05 10:46] LABS: Source, Urine Clean Catch
[2025-03-05 10:53] LABS: Appearance, Urine Clear (Clear); Bilirubin, Urine Neg (Neg); Blood, Urine Neg (Neg); Color, Urine Yellow (P-Yellow); Glucose Qualitative, Urine Neg (Neg); Ketones, Urine Neg (Neg); Leukocyte Esterase, Urine Neg (Neg); Nitrite, Urine Neg (Neg); Protein, Urine Neg (Neg); Urobilinogen, Urine NORM (Normal)
[2025-03-05 12:02] LABS: U Amphetamine Screen Not Detected; U Barbituate Screen Not Detected; U Benzodiazapine Screen DETECTED; U Buprenorphine Screen Not Detected; U Cannabinoids Screen DETECTED; U Cocaine Screen Not Detected; U Methadone Screen Not Detected; U Methamphetamine Screen Not Detected; U Opiates Screen Not Detected; U Oxycodone Screen Not Detected; U Phencyclidine Screen Not Detected
== END 2025-03-05 14:56 | disposition other institution (70) ==
LOC: ER 00:11 → EOR 01:12
PROVIDERS: ADMIT Emergency Medicine
DX: T39.1X2A Poisoning by 4-Aminophenol derivatives, intentional self-harm, initial encounter (principal); Z79.899 Other long term (current) drug therapy
CPT/HCPCS: 80053; 80320; 81003; 85025; 93005; 93010; 99285-25; G0378; G0480

== ENCOUNTER 2025-03-05 09:33 | Inpatient (IN) | payer OTHER ==
[~2025-03-05] VITALS: Wt 70.0 kg
[2025-03-05] MEDS ORDERED: LORazepam 2 MG/ML 1ML Injection IM PRN (12:20)
[2025-03-05] MEDS ORDERED: Polyethylene Glycol 3350 17 gm PO PRN (12:25)
[2025-03-05] MEDS ORDERED: DiphenhydrAMINE HCl 50 MG/ML 1ML Vial IM PRN (12:25)
[2025-03-05] MEDS ORDERED: Ondansetron 4 MG SoluTab MM PRN (12:25)
[2025-03-05] MEDS ORDERED: Aluminum Hydroxide 320MG/5ML 473 ML PO PRN (12:25)
[2025-03-05] MEDS ORDERED: Haloperidol Lactate Inj. 5 MG/ML Injection IM PRN (12:30)
[2025-03-05 15:08] VITALS: BP 107/74
[2025-03-05 15:22] VITALS: BP 107/74
[2025-03-05] MEDS ORDERED: Prozac40 MG PO (15:47)
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
[2025-03-05 19:18] VITALS: BP 109/65
--- NOTE | 2025-03-06 06:08 | NUR ---
SHIFT SUMMARY Pt is A&O, calm, cooperative, eye contact is appropriate. Pt s mood is tired, depressed, affect is blunted. Pt denies SI, HI, and hallucinations. He also denied pain or other medical issues. Pt has remained in his room, sleeping the entire evening and he skipped evening snacktime. Pt was given PRN trazodone and melatonin with his HS meds. Pt was out of bed at about 0545, asking for water before returning to his room. Staff continues q15m safety check per unit protocol.
[2025-03-06 08:24] LABS: CHOL/HDL RATIO 8.2; Cholesterol 272 mg/dL (50-200); HDL Cholesterol 33 mg/dL (>39); LDL/HDL RATIO 6.4; Low Density Lipoprotein Chol 210 mg/dL (0-110); Triglycerides 143 mg/dL (30-140); Very Low Density Lipoprot Chol 28 mg/dL (6-28)
[2025-03-06 08:53] VITALS: BP 117/75
[2025-03-06] MEDS ORDERED: Multivitamins 1 Tab PO SCH (09:00)
--- NOTE | 2025-03-06 17:24 | NUR ---
SHIFT SUMMARY PT A/O X4. HE REPORTS SOME SUICIDAL THOUGHTS BUT NO PLAN OR INTENT. HE DENIES HI OR AVTH. HIS AFFECT IS DEPRESSED OVERALL AND HIS SPEECH IS SLOW/QUIET. PT HAS BEEN SLEEPING FOR THE MAJORITY OF THE SHIFT. HIS GIRLFRIEND VISITED THIS SHIFT AND PT REPORTED SOME INCREASED ANXIETY AFTER THE VISIT. PT ENCOURAGED TO PRACTICE COPING SKILLS AND PT DID SO. HE CONTINUES TO BE ROUNDED ON Q15 FOR SAFETY AND WELLNESS.
[2025-03-06 20:12] VITALS: BP 111/78
--- NOTE | 2025-03-07 06:16 | NUR ---
SHIFT SUMMARY Pt is A&O, calm, cooperative, eye contact is good. Pt s mood is depressed, affect is blunted. Pt denies HI and hallucinations. Pt endorsed having fleeting SI thoughts, but has no plan or intent on following through. Pt denied pain, but did complain of dyspepsia and received PRN Tums at 1926. Pt is more active this evening that the previous, up for snack, watching some TV, and walking the mayers occasionally. Pt was given PRN trazodone and melatonin with his HS meds. After med pass, pt approached ad copy writer and asked about his evening meds. He said that he no longer wants to take olanzapine and wants to discuss this med with the provider. Staff continues q15m safety check per unit protocol.
[2025-03-07 08:42] VITALS: BP 128/78
[2025-03-07 08:58] LABS: Lithium 1.02 mmol/L (0.60-1.20)
[2025-03-07 09:04] LABS: Alanine Aminotransfer (ALT/SGP 26.0 U/L (12-78); Albumin, Blood 3.6 g/dL (3.4-5.0); Albumin/Globulin Ratio 0.9 (0.8-1.8); Anion Gap 4.0 mmol/L (3-11); Aspartate Aminotrans (AST/SGOT 13.0 U/L (12-37); Bilirubin, Total 0.2 mg/dL (0.1-1.0); Blood Urea Nitrogen 15.0 mg/dL (8-24); CO2, Blood 30.0 mmol/L (21-32); Calcium, Blood 9.1 mg/dL (8.5-10.1); Chloride, Blood 108.0 mmol/L (98-108); Creatinine, Blood 1.2 mg/dL (0.60-1.20); Globulin, Blood 3.8 g/dL (2.2-4.0); Glucose, Blood 94.0 mg/dL (70-99); Potassium, Blood 3.9 mmol/L (3.5-5.5); Sodium, Blood 138.0 mmol/L (136-145); Thyroid Stimulating Hormone 1.13 uIU/mL (0.360-4.800); Total Protein, Blood 7.4 g/dL (6.4-8.2)
--- NOTE | 2025-03-07 12:07 | NUR ---
PATIENT IS SPEAKING WITH AMOR, THE PRE COMMITTMENT METER MAINTENANCE PERSON AT THIS TIME.
--- NOTE | 2025-03-07 16:55 | NUR ---
SHIFT SUMMARY PT A/O X4; PLEASANT AND COOPERATIVE WITH CARE. HE REPORTS SOME PASSIVE SI. HE SAYS THAT HE BRIEFLY HAS THOUGHTS BUT DENIES ANY PLANS OR INTENT. PT'S AFFECT IS DEPRESSED/FLAT. HIS MOOD SEEMS TO BE IMPROVING SOMEWHAT AND HE IS INTERACTING MORE WITH HIS PEERS. PT STILL SLEEPING OFTEN, BUT ALSO COMING OUT TO THE DAY ROOM MORE TO PARTICIPATE IN MILEU ACTIVITIES. HE VISITED WITH HIS GIRLFRIEND AND SHE INFORMED NURSING STAFF THAT PT HAS COURT TOMORROW AT [address]800. [address] WILL NEED TO BE NOTIFIED OF PT'S HOSPITALIZATION TOMORROW.
[2025-03-07 19:20] VITALS: BP 135/84
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
[2025-03-08 08:03] VITALS: BP 120/83
--- NOTE | 2025-03-08 17:29 | NUR ---
SHIFT NOTE PT C/O FEELING 8/10 SI THIS SHIFT. HE STATE HE WANTS TO DO IT THE FASTEST WAY POSSIBLE BUT HE DID NOT EXPRESS A SPECIFIC PLAN. HE INQUIRED MULTIPLE TIMES ABOUT A PRN "ANXIETY MED" OF WHICH HE DID NOT HAVE AN ORDER FOR WITH THE EXCEPTION OF THE B52 PRN. PT STATES UNDERSTANDING AND WAS EASILY REDIRECTABLE AND CALM. HE WAS SLIGHTLY TANGENTIAL, WITH A DEPRESSIVE AFFECT. PT WAS ACTIVE IN THE MILIEU, BUT WITHDRAWN AND KEPT TO HIMSELF MOSTLY PLAYING THE SWITCH. PT HAD A VISIT WITH HIS S/O AND THAT SEEMED TO GO WELL. HE A PHONE CALL FROM HIS UTILIZATION MANAGEMENT UM NURSE STATING PT WAS SUPPOSED TO BE IN COURT TODAY. PT AGREED TO TALK TO HIM PRIVATELY ON THE PHONE. PT WAS COOPERATIVE WITH ALL MEDS. HE DENIES HI/AVH.
[2025-03-08 20:08] VITALS: BP 126/91
--- NOTE | 2025-03-09 06:12 | NUR ---
SHIFT SUMMARY Pt is A&O, calm, cooperative, eye contact is good. Pt s mood is more hopeful, affect is blunted. Pt denies HI and hallucinations. Pt endorsed having fleeting SI thoughts and stated that he was savi to be here; no plan or intent expressed. Pt denied current pain. Pt was active on the milieu throughout the evening, playing games and walking around the milieu. Pt received PRN melatonin and trazodone at med pass. Staff continues q15m safety checks per unit protocol.
[2025-03-09 08:55] VITALS: BP 143/85
[2025-03-09 09:48] LABS: Lithium 0.85 mmol/L (0.60-1.20)
--- NOTE | 2025-03-09 17:50 | NUR ---
SHIFT SUMMARY PT AxOx4. PLEASANT AND COOPERATIVE WITH CARE TODAY. DURING AM ASSESSMENT, PT ENDORSED SI, BUT DENIES PLAN OR INTENT, STATING "I FEEL SAFE HERE SO I WON'T DO ANYTHING HERE." PT DENIES HI AND AVTH. PT WAS FOLLOWING TREATMENT PROGRAM THIS SHIFT INCLUDING TAKING MEDICATIONS PRESCRIBED, ATTENDING MILIEU THERAPY GROUPS AND MINGLING APPROPRIATELY WITH STAFF/PEERS. HE ALSO HAD A VISIT WITH HIS GIRLFRIEND THIS AFTERNOON. HE IS CURRENTLY SITTING IN THE GROUP ROOM WATCHING TV. DENIES ANY NEEDS AT THIS TIME.
[2025-03-09 19:31] VITALS: BP 128/92
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
[2025-03-10 07:29] VITALS: BP 120/60
--- NOTE | 2025-03-10 18:25 | NUR ---
SHIFT SUMMARY PT A/O X4; PLEASANT AND COOPERATIVE WITH CARE. PT DENIES SI, HI, AVTH. PT'S AFFECT IS MORE ELEVATED THIS SHIFT. PT SPEECH IS FASTER AND HE WAS WRITING ON HIS BODY. HE ATTENDED SOME GROUP BUT NOT ABLE TO SIT THROUGH MOST OF THEM. HE IS ACTIVE ON THE MILIEU AND OFTEN INTERACTS WITH HIS PEERS. HE IS COOPERATIVE WITH TAKING MEDICATIONS AND REPORTS THAT HIS KLONIPIN HELPS A LOT.
[2025-03-10 20:18] VITALS: BP 124/89
--- NOTE | 2025-03-10 20:34 | NUR ---
PATIENT REFUSING MEDS THIS PM. STATES HE WANTS TO TRY TO GET OFF OF ALL MEDICATIONS. REMINDED PATIENT THAT HIS SYMPTOMS BECOME UNCONTROLLABLE WHEN HE IS NOT ON MEDICATION AND THAT IS THE REASON HE HAS ENDED UP IN THIS UNIT MULTIPLE TIMES. REVIEWED REASONS FOR MEDICATIONS AND IMPORTANCE OF MAINTAINING A REGULAR REGIMEN. CONTINUES TO REFUSE NORMAL MEDICATIONS.
--- NOTE | 2025-03-10 21:13 | NUR ---
PT DECIDED TO TAKE MEDICATIONS AFTER SNACK.
--- NOTE | 2025-03-10 23:38 | NUR ---
MID SHIFT SUMMARY FOR REPORT OFF: PT WITH MULTIPLE QUESTIONS THIS EVENING ABOUT MEDICATIONS AND WHICH OPTIONS HE WOULD HAVE WHEN HE LEAVES FOR "STRONGER" ANTIANXIETY AND SLEEP MEDICATIONS. ENCOURAGED HIM TO SPEAK WITH MD TOMORROW MORNING REGARDING HIS QUESTIONS. PT HAD BRIEF MOMENT OF INCREASED ELEVATED BEHAVIORS THIS PM BUT CALMED AFTER TAKING PM MEDICATIONS. CONTINUE 15 MIN CHECKS FOR SAFETY.
--- NOTE | 2025-03-11 04:13 | NUR ---
SHIFT SUMMARY (AFTER 2344): THIS RN TOOK OVER CARE OF PATIENT AT 2345. HE WAS NOTED TO BE IN BED RESTING WITH EYES CLOSED AND RESPIRATIONS CONFIRMED. HE HAD NO ISSUES OR CONCERNS THE REMAINDER OF THE SHIFT. CONTINUING TO MONITOR FOR SAFETY WITH Q15 MINUTE CHECKS.
[2025-03-11 09:08] VITALS: BP 131/73
--- NOTE | 2025-03-11 15:01 | NUR ---
IMPORTANT DISCHARGE INFORMATION PATIENT HAS A COURT HEARING ON SATURDAY,03/15/25 AT 10AM. HE NEEDS TO BE DISCHARGED BY 9:15AM SO [facility] CAN TRANSPORT TO [facility] FOR HIS HEARING. ADDRESS: [address] ADAPT GOLF SHOE SPIKE ASSEMBLER JERE WILL MEET HIM THERE BEFORE HIS HEARING = 9:50AM. PLEASE CALL [facility] FOR TRANSPORT AT . THIS WILL NEED TO BE DONE ON SATURDAY [facility] WILL NOT LET PRE SCHEDULED TRANSPORT FOR A HOSPITAL DISCHARGE.
--- NOTE | 2025-03-11 17:51 | NUR ---
SHIFT NOTE PT DENIES SI/HI/AVH. SHE STATES THAT HE DOESN'T WANT TO TODAY. PT DID INQUIRE ABOUT HIS MEDS AND THEN STARTED ASKING ABOUT DIFFERENT BENZO'S AND WANTING TO GET A STRONGER ONE THAN KLONOPIN BECAUSE HE JUST WANTS TO GET "KNOCKED OUT." HE WAS COMPLIANT WITH ALL MEDICATION ADMINISTRATIONS AND HE WENT TO GROUPS AND AND WAS ACTIVE IN THE MILIEU. D/C INFO PRINT PRESS OPERATOR CONFIRMED THAT PT HAS COURT APPEARANCE AT 1000 ON 03/15/25 AND HE WILL NEED TO BE D/C'D IN TIME TO GET TO COURT. PT HAD A VISIT WITH HIS S/O THAT APPEARED TO BE PLEASANT.
[2025-03-11 19:33] VITALS: BP 134/78
--- NOTE | 2025-03-11 23:56 | NUR ---
SHIFT SUMMARY Pt is A&O, calm, cooperative, eye contact is good. Pt s mood is good, affect is constricted. Pt denies SI, HI, and hallucinations. Pt denied current pain. Pt was active on the milieu throughout the evening, playing games and walking around the milieu. Staff continues q15m safety checks per unit protocol.
--- NOTE | 2025-03-12 00:19 | NUR ---
Report from ADRIAN Gustafson at [phone]. Assuming care for remainder of shift. Patient currently sleeping. Will continue every 15 minute observation for comfort and safety
--- NOTE | 2025-03-12 05:09 | NUR ---
ADDENDUM TO MIDNIGHT SHIFT SUMMARY Patient has slept through the night since approximately 2230. Continue every 15 minutes observation for comfort and safety
--- NOTE | 2025-03-12 16:54 | NUR ---
SHIFT SUMMARY: PT ALERT, ORIENTED AND COOPERATIVE WITH CARE. COMPLIANT WITH MEDICATIONS. DENIED SI, HI AND AVH. PT ATTENDED MEALS AND WAS PRESENT ON THE UNIT. ACTIVE IN MILIEU. SPENT TIME IN THE DAY ROOM WATCHING TV, PLAYING VIDEO GAMES, TALKING WITH PEERS AND STAFF, AND LISTENING TO MUSIC.
[2025-03-12 19:25] VITALS: BP 107/89
--- NOTE | 2025-03-13 04:59 | NUR ---
SHIFT SUMMARY PATIENT UP IN MILIEU VISITING WITH STAFF AND PEERS. PLAYING WITH A SWITCH GAME. PATIENT ANXIOUS REGARDING HIS MEDICATIONS, WITH MULTIPLE QUESTIONS ABOUT WHAT HE IS GOING TO BE TAKING WHEN HE GOES HOME. PATIENT ENCOURAGED TO SPEAK WITH DOCTOR KARY. PATIENT DENIES SI, HI, OR AVH. COMPLIANT WITH TAKING HS MEDICATIONS. UP UNTIL 2300 PACING IN [place] VERBALIZED THAT HE WAS JUST ATTEMPTING TO CALM HIS MIND BEFORE GOING TO BED. PATIENT APPEARS TO HAVE SLEPT WELL T/O NIGHT WITH RESP EVEN AND UNLABORED. CONTINUE TO MONITOR Q15MIN
[2025-03-13 08:06] VITALS: BP 104/79
--- NOTE | 2025-03-13 18:19 | NUR ---
SHIFT SUMMARY: PT ALERT, ORIENTED AND COOPERATIVE WITH CARE. DENIED SI, HI AND AVH. PT WAS PRESENT ON THE UNIT AND ACTIVE IN [place]IEU. PT SPENT TIME IN THE DAY ROOM PLAYING VIDEO GAMES, TALKING WITH PEERS AND WATCHING TV. PT ATTENDED CRAFT GROUP AND MEALS. NO ACUTE CHANGES THIS SHIFT.
[2025-03-13 20:25] VITALS: BP 129/83
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
[2025-03-14 08:56] VITALS: BP 139/93
[2025-03-14 10:04] LABS: Alanine Aminotransfer (ALT/SGP 27.0 U/L (12-78); Albumin, Blood 3.6 g/dL (3.4-5.0); Albumin/Globulin Ratio 0.9 (0.8-1.8); Anion Gap 7.0 mmol/L (3-11); Aspartate Aminotrans (AST/SGOT 15.0 U/L (12-37); Bilirubin, Total 0.2 mg/dL (0.1-1.0); Blood Urea Nitrogen 13.0 mg/dL (8-24); CO2, Blood 31.0 mmol/L (21-32); Calcium, Blood 9.4 mg/dL (8.5-10.1); Chloride, Blood 105.0 mmol/L (98-108); Creatinine, Blood 0.94 mg/dL (0.60-1.20); Globulin, Blood 4.0 g/dL (2.2-4.0); Glucose, Blood 123.0 mg/dL (70-99); Potassium, Blood 3.8 mmol/L (3.5-5.5); Sodium, Blood 139.0 mmol/L (136-145); Total Protein, Blood 7.6 g/dL (6.4-8.2)
[2025-03-14 10:06] LABS: Lithium 0.53 mmol/L (0.60-1.20)
--- NOTE | 2025-03-14 16:27 | NUR ---
DR. PRESTON CONTACTED R/T NOTE FROM STORE FACILITY TECHNICIAN REGARDING COURT DATE AND DISCHARGE TIME FOR 03/15/25. PER PROVIDER HE HAS BEEN IN CONTACT WITH PAULINO FROM [facility] AND THE COURT DATE CAN BE RESCHEDULED. PT WILL BE ON A HOLD UNTIL 1700 ON 03/15/25 AND EVALUATED BY ONCOMING PROVIDER FOR DISCHARGE PLAN ON 03/15.
--- NOTE | 2025-03-14 17:36 | NUR ---
SHIFT SUMMARY: PT ALERT, ORIENTED AND COOPERATIVE WITH CARE. DENIED SI, HI AND AVH. PT COMPLIANT WITH MEDICATIONS AND ATTENDED MEALS. PT WAS ACTIVE IN THE UNIT MILIEU. SPENT TIME IN THE DAY ROOM, PLAYING VIDEO GAMES, WATCHING TV AND TALKING WITH PEERS AND STAFF. PT HAD A VISIT WITH HIS S/O WHICH APPEARED TO GO WELL. PT S/O STATED THAT HIS COURT DATE HAS BEEN CHANGED TO 03/22. PT UPDATED THAT HE WILL SEE DR. DELA CRUZ TOMORROW TO DISCUSS HIS DISCHARGE AND PLAN OF CARE.
[2025-03-14 19:38] VITALS: BP 132/84
--- NOTE | 2025-03-15 04:40 | NUR ---
SHIFT SUMMARY: PATIENT WAS WALKING AROUND IN THE HALLWAY, TALKING TO MOST EVERYONE HE MET AT THE BEGINNING OF THE SHIFT. HE TALKED ABOUT HOW HE GOT HIS HAIR CUT AND SHAVED OFF "SOME OF MY EYEBROWS" AND SHAVED HIS WHISKERS. HE ASKED STAFF, "PLEASE DON'T TELL MY GIRLFRIEND! i WANT TO SURPRISE HER TOMORROW." HE ANSWERED VP ACCOUNT DIRECTOR QUESTIONS IN A MOSTLY LOGICAL AND LINEAR MANNER. HE WOULD GET OFF TOPIC, A LITTLE BIT MANIC, BUT WAS EASILY REDIRECTABLE. HE WAS PLEASANT AND COOPERATIVE WITH CARES. HE DENIED SUICIDAL IDEATION, THOUGHTS OF SELF HARMING AND A/V/T HALLUCINATIONS. HE PARTICIPATED IN SNACK AND WRAP UP GROUP AT 2030, AND WAS COMPLIANT WITH EVENING MEDICATIONS. HE ASKS PERTINENT QUESTIONS REGARDING HIS MEDICATIONS. HE STAYED UP A WHILE LONGER, THEN WENT TO BED, WHERE HE WAS NOTED TO BE RESTING QUIETLY WITH EYES CLOSED AND RESPIRATIONS CONFIRMED FOR THE REMAINDER OF THE SHIFT. CONTINUING TO MONITOR FOR SAFETY WITH Q15 MINUTE CHECKS.
[2025-03-15 08:48] VITALS: BP 131/90
[2025-03-15] MEDS ORDERED: LITH300ER PO (11:44)
[2025-03-15] MEDS ORDERED: OLAN10 PO (11:46)
[2025-03-15] MEDS ORDERED: HYDPAM25 PO (11:47)
[2025-03-15] MEDS ORDERED: TRAZ100 PO (11:48)
--- NOTE | 2025-03-15 13:10 | NUR ---
IMPORTANT HOSPITAL DISCHARGE APPOINTMENT INFORMATION Patient is scheduled for follow up with Aramis Wayne DO at [facility] on Saturday, March 17, 2025 at 1500 / [address] [place], [place] [address] / [phone]
--- NOTE | 2025-03-15 16:24 | NUR ---
DISCHARGE PT A/O X4; PLEASANT AND COOPERATIVE WITH CARE. HE DENIES SI, HI, AVTH. PT'S MOOD APPEARS ELEVATED. PT'S GIRLFRIEND CAME TO GO OVER DISCHARGE INSTRUCTIONS WITH PT PRIOR TO DISCHARGE. PT HAD A HARD TIME TRACKING DISCHARGE INSTRUCTIONS, BUT GIRLFRIEND EXPRESSED UNDERSTANDING. [employer] TO CALL PT TOMORROW TO CONFIRM FOLLOW UP APPOINTMENT ON 03/17 AND DISCUSS MEDICATIONS. THIS RN INFORMED THAT PT DOES NOT CURRENTLY HAVE A PHONE AND WANTS TO MAKE SURE THAT THEY CAN GET A HOLD OF THE PATIENT. PT AND GIRLFRIEND WOULD PREFER THAT [employer] CALLS THE GIRLFRIEND'S PHONE NUMBER TO CONFIRM APPOINTMENT. THIS RN REACHED OUT TO [employer] AND PROVIDED UPDATED PHONE NUMBER. NEW PRESCRIPTIONS FAXED TO [facility] AND PT VERBALIZED THAT HE WOULD PICK THEM UP TODAY. PT'S BELONGINGS RETURNED HE LEFT THE UNIT AT 1557.
== END 2025-03-15 15:57 | disposition home or self-care (01) | DRG 885 ==
LOC: BHU 09:33
PROVIDERS: ADMIT Student in an Organized Health Care Education/Training Program
DX: F31.5 Bipolar disorder, current episode depressed, severe, with psychotic features (principal); F41.9 Anxiety disorder, unspecified; Z56.0 Unemployment, unspecified; Z91.51 Personal history of suicidal behavior; Z79.52 Long term (current) use of systemic steroids; Z79.899 Other long term (current) drug therapy; Z91.09 Other allergy status, other than to drugs and biological substances
CPT/HCPCS: 36415; 80053; 80061; 80178; 83036; 84443; A9270

== ENCOUNTER 2025-03-28 17:13 | Observation (INO) | payer OTHER ==
[~2025-03-28] VITALS: Ht 172.7 cm; Wt 59.0 kg
[~2025-03-28 17:13] MED LIST changes: +HYDPAM25 PO; +LITH300ER PO
[2025-03-28 17:57] LABS: BASOPHILS ABSOLUTE AUTO 0.04 K/mm3 (0.00-0.23); BASOPHILS PERCENT AUTO 0 % (0-2); EOSINOPHILS ABSOLUTE AUTO 0.29 K/mm3 (0.00-0.68); EOSINOPHILS PERCENT AUTO 3 % (0-6); Hematocrit 43.1 % (37.0-53.0); Hemoglobin 14.2 g/dL (13.5-17.5); IMMATURE GRAN ABSOLUTE AUTO 0.02 K/mm3 (0.00-0.10); IMMATURE GRAN PERCENT AUTO 0 % (0-1); LYMPHOCYTES ABSOLUTE AUTO 2.07 K/mm3 (0.84-5.20); LYMPHOCYTES PERCENT AUTO 21 % (21-46); MONOCYTES ABSOLUTE AUTO 0.75 K/mm3 (0.16-1.47); MONOCYTES PERCENT AUTO 8 % (4-13); Mean Corpuscular HGB Conc 32.9 g/dL (31.5-36.5); Mean Corpuscular Volume 93 fL (80-100); NEUTROPHILS ABSOLUTE AUTO 6.58 K/mm3 (1.96-9.15); NEUTROPHILS PERCENT AUTO 68 % (41-73); NRBC ABSOLUTE 0.00 K/mm3 (0.00-0.02); NRBC Auto 0.0 /100 WBC (0.0-0.2); Platelet Count 316 K/mm3 (150-400); RDW Coefficient Variation 13.2 % (11.7-14.2); RDW Standard Deviation 44.5 fL (35.1-46.3)
[2025-03-28 18:08] LABS: Alanine Aminotransfer (ALT/SGP 29.0 U/L (12-78); Albumin, Blood 3.4 g/dL (3.4-5.0); Albumin/Globulin Ratio 0.9 (0.8-1.8); Anion Gap 6.0 mmol/L (3-11); Aspartate Aminotrans (AST/SGOT 20.0 U/L (12-37); Bilirubin, Total 0.3 mg/dL (0.1-1.0); Blood Urea Nitrogen 8.0 mg/dL (8-24); CO2, Blood 31.0 mmol/L (21-32); Calcium, Blood 9.4 mg/dL (8.5-10.1); Chloride, Blood 107.0 mmol/L (98-108); Creatinine, Blood 0.94 mg/dL (0.60-1.20); Ethanol (Alcohol), Blood, Med <3 mg/dL; Globulin, Blood 3.8 g/dL (2.2-4.0); Glucose, Blood 91.0 mg/dL (70-99); Potassium, Blood 4.8 mmol/L (3.5-5.5); Salicylate <1.7 mg/dL (2.8-20.0); Sodium, Blood 139.0 mmol/L (136-145); Total Protein, Blood 7.2 g/dL (6.4-8.2)
[2025-03-28 20:38] LABS: U Amphetamine Screen Not Detected; U Barbituate Screen Not Detected; U Benzodiazapine Screen DETECTED; U Buprenorphine Screen Not Detected; U Cannabinoids Screen DETECTED; U Cocaine Screen Not Detected; U Methadone Screen Not Detected; U Methamphetamine Screen Not Detected; U Opiates Screen Not Detected; U Oxycodone Screen Not Detected; U Phencyclidine Screen Not Detected
[2025-03-29 12:07] VITALS: BP 108/64
[2025-03-29] MEDS ORDERED: FLUOXETINE HCL60 MG PO (16:09)
== END 2025-03-29 13:42 | disposition other institution (70) ==
LOC: ER 17:13 → EOR 17:14
PROVIDERS: Student in an Organized Health Care Education/Training Program; ADMIT Emergency Medicine
DX: F31.4 Bipolar disorder, current episode depressed, severe, without psychotic features (principal); T43.592A Poisoning by other antipsychotics and neuroleptics, intentional self-harm, initial encounter; I95.2 Hypotension due to drugs; Z91.048 Other nonmedicinal substance allergy status; Z79.899 Other long term (current) drug therapy
CPT/HCPCS: 80053; 80320; 85025; 93005; 93010; 99285-25; A9270; G0378; G0480; J7120

== ENCOUNTER 2025-03-29 12:34 | Inpatient (IN) | payer OTHER ==
[~2025-03-29] VITALS: Ht 172.7 cm; Wt 72.5 kg
[2025-03-29 13:55] VITALS: BP 114/76
[2025-03-29 14:18] VITALS: BP 114/76
[2025-03-29] MEDS ORDERED: Haloperidol Lactate Inj. 5 MG/ML Injection IM PRN (15:15)
[2025-03-29] MEDS ORDERED: DiphenhydrAMINE HCl 50 MG/ML 1ML Vial IM PRN (15:15)
[2025-03-29] MEDS ORDERED: Aluminum Hydroxide 320MG/5ML 473 ML PO PRN (15:15)
[2025-03-29] MEDS ORDERED: Polyethylene Glycol 3350 17 gm PO PRN (15:20)
[2025-03-29] MEDS ORDERED: Ondansetron 4 MG SoluTab MM PRN (15:20)
[2025-03-29] MEDS ORDERED: FLUOXETINE HCL60 MG PO (16:09)
--- NOTE | 2025-03-29 16:47 | NUR ---
ADMIT ASSESSMENT: 13:48 PT WAS ADMITTED TO [facility] FROM [facility] EMERGENCY [facility]PARTMENT. PT'S BELONGINGS WERE LOCKED IN A BIN AND STORED. PT REPORTED, "I'M FEELING REALLY DOWN TODAY." HIS AFFECT WAS CONGRUENT TO HIS STATED MOOD. HE ENDORSED SI, "I QUIT TAKING MY MEDS AND AM NOT DOING WELL." HE REPORTED THAT HE WOULDN'T ATTEMPT SELF-HARM DURING HIS ADMISSION IN [facility]. HE DENIED HI AND AVH. THE TWO NURSE SKIN AND SCALP ASSESSMENT WERE COMPLETED. PT WAS SHOWN TO HIS ROOM AND HE WENT INTO THE TV ROOM AND WAS ON PERIFERY OF THE MILIEU PLAYING A HAND HELD GAME. HIS DEMEANOR REMAINS DOWN CAST. HE WAS GIVEN CLONIPINE 1MG IN THE ER AT 13:38.
--- NOTE | 2025-03-29 17:22 | NUR ---
PT IS VISITING IWTH HIS GIRLFRIEND, HIS APPEARS TO BE FIDGETY BUT DOESN'T SEEM TO BE UPSET.
--- NOTE | 2025-03-29 19:17 | NUR ---
PT WAS GIVEN HYDROXYZINE 50MG AT 18:09 FOR MASS OF 3.
[2025-03-29 20:12] VITALS: BP 112/66
--- NOTE | 2025-03-30 04:37 | NUR ---
SHIFT SUMMARY PT PRESENT IN [place]IEU AT START OF SHIFT. HE REPORTS SI, BUT NO INTENT WHILE IN [facility]. HE STATES HIS PLAN IF HE WAS HOME WOULD BE TO TAKE PILLS OR RUN INTO TRAFFIC. HE STATES A DETERRENT TO COMMITTING SUICIDE IS HOW IT WOULD AFFECT OTHERS. HE REPORTS FEELING "DOWN AND DEPRESSED" WHICH IS CONGRUENT WITH HIS MOOD. HE PLAYED VIDEO GAMES IN GROUP ROOM. HE HAD EVENING SNACK, WAS COMPLIANT WITH MEDS AND RECEIVED PRN ZYPREXA FOR MASS OF 4, AND TRAZODONE X2. HE CONTINUED TO HAVE DIFFICULTY SLEEPING, AND SPENT SOME TIME IN THE SENSORY ROOM LISTENING TO MUSIC AND JOURNALING. SHORTLY BEFORE MIDNIGHT HE RECEIVED PRN VISTARIL AND MELATONIN AND WENT TO BED SHORTLY AFTER. HE HAS REMAINED IN BED SINCE THAT TIME. Q15 MINUTE CHECKS TO CONTINUE PER PT SAFETY/UNIT PROTOCOL.
[2025-03-30 08:26] LABS: CHOL/HDL RATIO 4.7; Cholesterol 203 mg/dL (50-200); HDL Cholesterol 43 mg/dL (>39); LDL/HDL RATIO 3.1; Low Density Lipoprotein Chol 132 mg/dL (0-110); Triglycerides 139 mg/dL (30-140); Very Low Density Lipoprot Chol 27 mg/dL (6-28)
[2025-03-30 08:48] VITALS: BP 112/71
[2025-03-30] MEDS ORDERED: Multivitamins 1 Tab PO SCH (09:00)
--- NOTE | 2025-03-30 11:13 | NUR ---
[employer] [facility] Amanda from [employer] [facility] called to ensure us that she would cancel the appt that this patient had previously scheduled for today. She would like pass on that when he discharges, to call and establish a new appt. They are working on providing him with a female provider.
--- NOTE | 2025-03-30 17:48 | NUR ---
SHIFT SUMMARY PT A/O X4 AND COOPERATIVE WITH CARE. HE DENIES CURRENT SI, HI, AVTH. HE PARTICIPATED IN MEALS AND MILEU ACTIVITIES THIS SHIFT. PT REQUESTING NOTE FOR COURT BECAUSE HE BELIEVES HE IS GOING TO MISS HIS COURT DATE WHILE BEING IN [facility]. NO OTHER ACUTE CHANGES THIS SHIFT.
[2025-03-30 20:04] VITALS: BP 115/67
--- NOTE | 2025-03-31 04:17 | NUR ---
SHIFT SUMMARY PT PRESENT IN [place] AT START OF SHIFT. HE DENIES ANY SI, HI, THOUGHTS OF SELF HARM OR HALLUCINATIONS. HE STATES HIS MOOD IS BETTER, BUT HE IS BORED. MASS SCORE OF 2 AT 1935 AND PT RECEIVED PRN HYDROXYZINE. HE HAD EVENING SNACK, WAS COMPLAINT WITH MEDICATIONS. RECEIVED PRN TRAZODONE AND MELATONIN. HE WAS BECOMING MORE RESTLESS, PACING THE HALLS WITH HEADPHONES ON AND DANCING. MASS SCORE OF 4 AND RECEIVED PRN ZYPREXA AT 2034. PT STATED HE WAS NOT FEELING TIRED AND WANTED TO STAY UP AND TALK ALL NIGHT. HE RECEIVED A SECOND DOSE OF TRAZODONE AND WENT TO BED AROUND 2229. HE HAS REMAINED IN BED THROUGHOUT THE NIGHT. Q15 MINUTE CHECKS TO CONTINUE PER PT SAFETY/UNIT PROTOCOL.
[2025-03-31 09:05] VITALS: BP 121/70
--- NOTE | 2025-03-31 15:24 | NUR ---
Discharge appts established. [facility] with Debra Sidhu on April 05 at 1pm. Med management with Piedad Hood on May 03 at 9:30am. (Court 10am April 05) Safety plan done-
--- NOTE | 2025-03-31 17:12 | NUR ---
PT ALERT, ORIENTED AND COOPERATIVE WITH CARE. HE DENIES SI, HI AND AVH. STATES THAT HE SLEPT WELL LAST NIGHT AND IS FEELING GOOD TODAY. HE IS COMPLIANT WITH MEDICATIONS. PT WAS ACTIVE IN THE UNIT [place], TALKATIVE WITH PEERS AND STAFF. HE WAS IN AND OUT OF GROUPS TODAY AND SPENT TIME IN THE DAY ROOM PLAYING VIDEO GAMES. PT HAD A VISIT WITH HIS GIRLFRIEND WHICH APPEARED TO GO WELL. HE C/O 7/10 ANXIETY IN THE AFTERNOON AND WAS MEDICATED WITH PRN PER EMAR.
[2025-03-31 20:08] VITALS: BP 107/74
--- NOTE | 2025-04-01 04:24 | NUR ---
SHIFT SUMMARY PATIENT UP IN [place]IEU VISITING WITH STAFF AND PEERS. ALTERNATING BETWEEN PACING IN [place] TO PLAYING VIDEO GAME AND LISTENING AND SINGING TO MUSIC ON HEADPHONES. PATIENT VERBALIZED THAT HE IS FEELING "WEARY" ABOUT "LIFE ON THE OUTSIDE" HE DOES SAY THAT HE IS FEELING MORE CONFIDENT ABOUT HIS DISCHARGE AFTER THIS STAY. PATIENT REQUESTING ZYPREXA FOR ANXIETY MASS 5. DENIES SI, HI, OR AVH. COOPERATIVE WITH HS MEDICATIONS. PATIENT APPEARS TO BE SLEEPING WELL T/O NIGHT RESP EVEN AND UNLABORED. CONTINUE TO MONITOR Q15MIN
[2025-04-01 08:07] VITALS: BP 114/68
--- NOTE | 2025-04-01 15:44 | NUR ---
IMPORTANT DISCHARGE INFORMATION PATIENT TO BE DISCHARGED ON 04/02/25 AT 11AM. HIS GIRLFRIEND (MANUEL) WILL BE PICKING HIM UP. HIS NEW ADDRESS IS [address] [place]. HER PHONE NUMBER IS = . ALL PARTIES VERBALIZE AN UNDERSTANDING. FOLLOW UP WITH [facility]: RODY CASTRO ON 04/05/25 AT 1PM FOLLOW UP WITH NEW FEMALE PCP DR. YAN AT [facility] ON 04/06/25 AT 3:20PM PHARMACY: [facility] FAX NUMBER IS [phone]
--- NOTE | 2025-04-01 17:23 | NUR ---
SHIFT SUMMARY: PT ALERT, ORIENTED AND COOPERATIVE WITH CARE. DENIES SI, HI AND AVH. PT WAS MEDICATED WITH PRN FOR C/O 03/18 ANXIETY THIS AM, REPORTED RELIEF AFTER. PT ATTENDED MEALS AND GROUPS. HE WAS ACTIVE IN THE UNIT [place]IEU, TALKING WITH PEERS AND STAFF AND PLAYING VIDEO GAMES. HAD A VISIT WITH HIS GIRLFRIEND WHICH APPEARED TO GO WELL. DISCHARGE IS SET FOR 04/02 AT 11:00, PT GIRLFRIEND WILL BE PICKING HIM UP PER [employer].
[2025-04-01 19:08] VITALS: BP 114/72
--- NOTE | 2025-04-02 05:11 | NUR ---
SHIFT SUMMARY: PATIENT WAS IN THE DINING AREA EATING DINNER AT THE BEGINNING OF THE SHIFT. HE CAME OUT AND WALKED UP TO THE NURSES' STATION AND BEGAN TO TALK ABOUT HIS DAY. HE STATED THAT HE HAD "A GOOD DAY" AND HE WAS "EXCITED ABOUT DISCHARGING". HE STATED, "I'M DOING SO WELL, YOU GUYS WON'T EVER SEE ME AGAIN". HE TALKED ABOUT COPING SKILLS, AND DISCUSSED WITH RN USING "I AM WORTH" SKILLS WHEN HE FEELS SI. HE WAS ABLE TO ANSWER ACCOUNTS PAYABLE SPECIALIST QUESTIONS IN A LOGICAL AND LINEAR MANNER. HE DENIED SUICIDAL IDEATION, THOUGHTS OF SELF HARMING AND A/V/T HALLUCINATIONS. HE PARTICIPATED IN 2030 SNACK AND WRAP UP GROUP, AND WAS COMPLIANT WITH EVENING MEDICATIONS. HE STAYED UP FOR A TIME, WATCHING TELEVISION AND TALKING WITH STAFF AND PEERS, THEN WENT TO HIS ROOM, WHERE HE WAS NOTED TO BE IN BED RESTING WITH EYES CLOSED AND RESPIRATIONS CONFIRMED FOR THE REMAINDER OF THE SHIFT. CONTINUING TO MONITOR FOR SAFETY WITH Q15 MINUTE CHECKS.
[2025-04-02 08:06] VITALS: BP 117/66
[2025-04-02] MEDS ORDERED: DIVA500ER PO (08:49)
[2025-04-02] MEDS ORDERED: DIVA250ER PO (08:51)
--- NOTE | 2025-04-02 11:26 | NUR ---
DISCHARGE PT DISCHARGED W/ BELONGINGS. NO ACUTE EVENTS TODAY. DENIES SI, HI, AVTH. HOLD LIFT PAPERWORK SIGNED. PT INTERACTING W/ PEERS AND STAFF. PLEASANT AND COOPERATIVE. TOOK MEDICATIONS. DISCHARGE PAPERWORK SIGNED.
== END 2025-04-02 11:16 | disposition home or self-care (01) | DRG 885 ==
LOC: BHU 12:34
PROVIDERS: ADMIT Psychiatry & Neurology Psychiatry
DX: F31.4 Bipolar disorder, current episode depressed, severe, without psychotic features (principal); R45.851 Suicidal ideations; Z79.899 Other long term (current) drug therapy; Z91.048 Other nonmedicinal substance allergy status
CPT/HCPCS: 36415; 80061; 83036; A9270

== ENCOUNTER 2025-07-03 17:01 | Inpatient (IN) | payer OTHER ==
[~2025-07-03] VITALS: Ht 160 cm; Wt 69.8 kg
[~2025-07-03 17:01] MED LIST changes: +DIVA250ER PO; +DIVA500ER PO
[2025-07-04] MEDS ORDERED: Polyethylene Glycol 3350 17 gm PO PRN ×2 (13:55→14:55)
[2025-07-04] MEDS ORDERED: Ondansetron 4 MG SoluTab MM PRN ×2 (13:55→14:50)
[2025-07-04] MEDS ORDERED: Aluminum Hydroxide 320MG/5ML 473 ML PO PRN ×2 (14:00→15:00)
[2025-07-04] MEDS ORDERED: FLU VACC TS2025-26(6MOS UP)/PF 45 MCG/0.5 ML SYRINGE IM SCH ×2 (14:00→14:50)
[2025-07-04] MEDS ORDERED: FLUOXETINE HCL60 MG PO (14:24)
[2025-07-04 17:01] VITALS: BP 126/92
[2025-07-04] MEDS ORDERED: HYDPAM50 PO (17:14)
[2025-07-04 17:36] VITALS: BP 126/92
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
[2025-07-04 20:10] VITALS: BP 126/78
--- NOTE | 2025-07-04 21:25 | NUR ---
MASS SCORE: PATIENT WAS GIVEN REQUESTED ZYPREXA AT 2100 FOR A MASS SCORE OF 4. PATIENT REFUSED LITHIUM. STATES HE WILL DISCUSS WITH DOCTOR TOMORROW.
--- NOTE | 2025-07-04 21:51 | NUR ---
MEDICATION: PATIENT REQUESTED AND WAS GIVEN TRAZODONE FOR C/O INSOMNIA RELATED TO ANXIETY. PLEASE ALSO SEE MASS SCORE NOTE. MEDICATION WAS EFFECTIVE.
--- NOTE | 2025-07-04 22:30 | NUR ---
MEDICATION: PATIENT REQUESTED AND WAS GIVEN A SECOND TRAZODONE 50 MG PO FOR CONTINUED C/O INSOMNIA. CONTINUING TO MONITOR.
--- NOTE | 2025-07-04 23:20 | NUR ---
MID SHIFT SUMMARY: PATIENT WAS IN THE HALLWAY PACING AT THE BEGINNING OF THE SHIFT. HE PRESENTED BLUNTED AND DEPRESSED. HE STATED, "I'VE BEEN BETTER". HE WAS ABLE TO ANSWER EMAIL MARKETING ASSISTANT QUESTIONS IN A LOGICAL AND LINEAR MANNER. HE DENIED SUICIDAL IDEATION, THOUGHTS OF SELF HARMING AND A/V/T HALLUCINATIONS AT THIS TIME. HE STATED THAT HE WOULD "LET A NURSE KNOW" IF HE STARTED FEELING WORSE. HE PARTICIPATED IN SNACK AND WRAP UP GROUP AT 2030 IN THE DINING AREA. HE WAS MOSTLY COMPLIANT WITH MEDICATION ADMINISTRATION AFTER SNACK TIME. HE REFUSED HIS LITHIUM, STATING, "IT JUST DOESN'T WORK FOR ME". HE STATED, "I WILL TALK TO THE DOCTOR ABOUT IT TOMORROW." HE REQUESTED AND WAS GIVEN TRAZODONE FOR INSOMNIA. HE DID REQUIRE A SECOND TRAZODONE ABOUT AN HOUR LATER, HE WAS STILL STRUGGLING WITH INSOMNIA. HE REQUESTED AND WAS GIVEN ZYPREXA FOR A MASS SCORE OF 4, WHICH WAS EFFECTIVE FOR RESTLESSNESS AND AGITATION. HE WAS ABLE TO GO TO HIS ROOM AND REST QUIETLY ON HIS BED WITH EYES CLOSED AND RESPIRATIONS CONFIRMED. CONTINUING TO MONITOR FOR SAFETY WITH Q15 MINUTE CHECKS. WILL GIVE REPORT TO RN WHO WILL TAKE OVER CARE OF PATIENT.
--- NOTE | 2025-07-05 04:18 | NUR ---
END OF SHIFT SUMMARY SINCE ASSUMING CARE AT MIDNIGHT, PATIENT HAS BEEN RESTING QUIETLY IN HIS BED. NO PRN MEDICATIONS WERE UTILIZED. HE DOES NOT EXHIBIT ANY SIGNS OF DISTRESS.
[2025-07-05] MEDS ORDERED: Multivitamins 1 Tab PO SCH ×2 (09:00)
--- NOTE | 2025-07-05 16:55 | NUR ---
SHIFT SUMMARY PT A/O X4; DENIES SI, HI, AVTH. PT SAYS THAT HE IS "EXTREMELY DEPRESSED" AND HIS AFFECT IS DEPRESSED. PT IS WITHDRAWN AND HAS BEEN SLEEPING FOR THE MAJORITY OF THE SHIFT. PT DECLINING TO TAKE MEDICATIONS. PT APPEARS SLUGGISH AND DISHEVELED. PT WAS TO HAVE COURT TODAY AND GAVE PERMISSION TO EMAIL HIS HOSTEL MANAGER SO HE CAN INFORM THE COURTS THAT HE IS ADMITTED TO THE [facility] A PT.
--- NOTE | 2025-07-05 17:42 | NUR ---
PRN MEDICATION PT GIVEN PRN VISTARIL FOR ANXIETY. PT ANXIOUS AND PACING AFTER VISIT WITH GIRLFRIEND. MASS SCORE COMPLETED. SEE MASS DOCUMENTATION.
[2025-07-05 20:10] VITALS: BP 130/77
--- NOTE | 2025-07-05 20:20 | NUR ---
INITIAL SHIFT ASSESSMENT PT IN GROUP ROOM, PLAYING SWITCH VIDEO GAME, SITTING QUIETLY. THIS RN SPOKE TO PT IN SENSORY ROOM, AND PATIENT REPORTS CURRENT SI, BUT HAS NO PLAN OR INTENT. HE DENIES ANY HI OR AVTH. ONCE PT STARTED TALKING, SPEECH WAS FAST AND DISORGANIZED, JUMPING FROM ONE SUBJECT TO THE NEXT, PATIENT TAPPING HIS FEET AND FIDGETING WITH HIS HANDS AND HAIR. HE REPORTS HIS ANXIETY AT 10/10, DEPRESSION AT 9/10. MASS SCORE OF 5. PT RECEIVED PRN ZYPREXA. PT VERBALLY CONTRACTED FOR SAFETY AND STATES HE WILL NOTIFIY STAFF IF SYMPTOMS WORSEN. Q15 MINUTE CHECK TO CONTIUE BY STAFF FOR PT SAFETY AND WELLNESS.
--- NOTE | 2025-07-06 04:10 | NUR ---
END OF SHIFT UPDATE PLEASE SEE INITIAL ASSESSMENT NOTE FROM START OF SHIFT. PT NOTED ZYPREXA WAS EFFECTIVE. HE SPENT MOST OF THE EVENING IN THE GROUP ROOM WATCHING TV AND PLAYING THE SWITCH. HE HAD EVENING SNACK. HE INITIALLY REFUSED HIS SCHEDULED LITHIUM BUT LATER AGREED TO TAKE MEDICATION. HE REQUESTED AND RECEIVED PRN TRAZODONE X1 PRIOR TO BEDTIME. PT HAS REMAINED IN BED THROUGHOUT THE NIGHT. Q15 MINUTE CHECKS TO CONTINUE PER PT SAFETY AND WELLNESS.
[2025-07-06 08:51] VITALS: BP 131/87
--- NOTE | 2025-07-06 16:56 | NUR ---
SHIFT SUMMARY PT A/O X3-4; COOPERATIVE WITH CARE. HE DENIES SI, HI, AVTH. PT'S AFFECT IS DEPRESSED/FLAT AND HE IS WITHDRAWN. HE DESCRIBES HIS MOOD DEPRESSED AND HE HAS BEEN IN HIS ROOM SLEEPING FOR THE MAJORITY OF THE DAY. PT ATTENDED A FEW MEALS BUT DID NOT ATTEND GROUP. PT CURRENTLY AGREEABLE TO TAKE HIS LITHIUM AT THIS TIME. PT DOES PERIODICALLY REPORT ANXIETY/AGITATION AND IS TREATED PER EMR. PLEASE SEE EMR AND MASS DOCUMENTATION. THIS AFTERNOON THE PT CAME TO THE NURSE'S STATION AND REQUESTED TO BE DISCHARGED. ENCOURAGED PT TO DISCUSS HIS DISCHARGE CONCERNS WITH PSYCHIATRIST TOMORROW. PT IS AGREEABLE TO THIS AT THIS TIME.
[2025-07-06 19:14] VITALS: BP 131/83
--- NOTE | 2025-07-07 05:29 | NUR ---
SHIFT SUMMARY PATIENT UP IN [place] VISITING WITH STAFF AND PEERS. VERBALIZED THAT HE FEELS LIKE HE IS "READY TO GO" DENIES SI, HI, OR AVTH. CONTINUES TO HAVE ANXIETY WITH MASS 4. REQUESTING ZYPREXA TO HELP WITH ANXIETY. COOPERATIVE WITH HS MEDICATION, ALSO REQUESTING TRAZODONE FOR SLEEP AID. AT 2215 PATIENT AWAKE 2ND DOSE OF TRAZODONE GIVEN. PATIENT APPEARS TO BE SLEEPING WELL THE REST OF THE NIGHT RESP EVEN AND UNLABORED. CONTINUE TO MONITOR Q15MIN
[2025-07-07 08:47] LABS: CHOL/HDL RATIO 5.6; Cholesterol 209 mg/dL (50-200); HDL Cholesterol 37 mg/dL (>39); LDL/HDL RATIO 4.2; Low Density Lipoprotein Chol 154 mg/dL (0-110); Triglycerides 90 mg/dL (30-140); Very Low Density Lipoprot Chol 18 mg/dL (6-28)
--- NOTE | 2025-07-07 09:18 | NUR ---
NURSE NOTE PT IN BED ALL MORNING, REFUSES TO GET UP FOR BREAKFAST. ASKED PT TO COME TAKE MEDICATIONS AND PT RESPONDS "I'LL GET THEM IN A LITTLE BIT."
[2025-07-07 12:58] VITALS: BP 131/88
--- NOTE | 2025-07-07 17:40 | NUR ---
SHIFT SUMMARY PT SLEPT MOST OF THE AM AND MISSED BREAKFAST AND MORNING SNACK. HE WOKE FOR LUNCH AND THEN WENT BACK TO BED. SHORTLY AFTER HE WAS UP REQUESTING A ZYPREXA FOR C/O ANXIETY. HIS MASS SCORE WAS 3, SO PT AGREED TO PRN VISTARIL. HE DID NOT RECIEVE ANY OTHER PRN MEDICATIONS. HE SPOKE ON THIS PHONE WITH HIS S/O IN THE EVENING AND HE SAT THIS GROUP ROOM AND INTERACTED WELL WITH HIS PEERS. PT HAD NO OTHER BEHAVIORS OR ISSUES THIS SHIFT.
[2025-07-07 19:23] VITALS: BP 133/79
--- NOTE | 2025-07-08 04:22 | NUR ---
SHIFT SUMMARY PATIENT UP IN [place]IEU VISITING WITH PEERS AND STAFF, PLAYING VIDEO GAMES. VERBALIZED THAT HE IS FEELING "DECENT" DENIES SI, HI, OR AVTH. CONTINUES TO HAVE C/O ANXIETY. HYDROXYZINE GIVEN FOR MASS 4, WITH GOOD EFFECT. PATIENT REQUESTING TRAZODONE FOR SLEEP. APPEARS TO BE SLEEPING WELL T/O NIGHT WITH RESP EVEN AND UNLABORED. CONTINUE TO MONITOR Q15MIN.
[2025-07-08 08:32] VITALS: BP 128/87
--- NOTE | 2025-07-08 18:11 | NUR ---
SHIFT SUMMARY PT DENIES SI, HI, AVTH AT THIS TIME. STATES MOOD IS "STABLE" PT SLEPT IN/RESTED QUIETLY TILL ABOUT 1PM BEFORE COMING OUT TO DAYROOM. PT WENT TO GROUPS AND MEALS TODAY. PLAYED SWITCH AND INTERACTING W/ PEERS. REQUESTED ANXIETY MEDS TWICE TODAY D/T FEELING ANXIOUS ABOUT "PTSD AND FLASHBACKS" AND MEMORIES OF PREVIOUS STAYS AT THIS [facility].
[2025-07-08 19:08] VITALS: BP 104/77
--- NOTE | 2025-07-09 04:09 | NUR ---
SHIFT SUMMARY 24 YEAR-OLD MALE PRESENTS WELL GROOMED. HE IS ALERT AND ORIENTED. HE SPEAKS IN A CLEAR VOICE AND IN AN APPROPRIATE VOLUME. HE IS ABLE TO MAKE AND KEEP EYE CONTACT DURING CONVERSATIONS. AT THE TIME OF HIS ASSESSMENT, HE DESCRIBED HIS MOOD I M DECENT . HE ALSO DENIED SI, HI, AND AVTH AT THAT TIME. HE ATTENDED SNACK AND DAY ROOM. HE WAS NOTED TO PACE THE HALLS WITH HEADPHONES ON. ON OCCASION, HE WAS NOTED TO BE TEARFUL. HE WAS COMPLIANT WITH CARE AND MEDICATION ADMINISTRATION. HE RECEIVED THE FOLLOWING PRN MEDICATIONS: TRAZADONE 50MG AT 2045 FOR SLEEP. HE CONTINUES TO BE MONITORED EVERY 15 MINUTES FOR WELLNESS AND SAFETY.
--- NOTE | 2025-07-09 04:09 | NUR ---
PRN NOTE PATIENT RECEIVED THE FOLLOWING PRN MEDICATIONS DURING MANAGER TERMINAL: TRAZADONE 50MG AT 2046 FOR SLEEP
[2025-07-09 08:53] VITALS: BP 122/97
--- NOTE | 2025-07-09 08:57 | NUR ---
IMPORTANT DISCHARGE INFORMATION PATIENT DISCHARGING TODAY AROUND 11AM. HIS S/O "MANUEL" IS COMING TO PICK HIM UP. SHE CAN BE REACHED AT . FOLLOW UP WITH PCP DR. BURT ON 07/13/25 AT 3:20PM AT THE [facility]. FOLLOW UP MENTAL HEALTH SERVICES AT THE [facility] 07/13/25 AT 3:20PM. THEY WILL SEE GIANCARLO SAME DAY PCP DURING THAT VISIT. FOLLOW UP WITH [facility] MENTAL HEALTH SERVICES FOR OPEN ACCESS AND OR CRISIS. PHARMACY: [facility] FAX NUMBER: [phone]
[2025-07-09] MEDS ORDERED: Lithium Carbon450 MG (10:46)
[2025-07-09] MEDS ORDERED: LITH300ER PO (10:47)
--- NOTE | 2025-07-09 12:39 | NUR ---
NURSING DISCHARGE NOTE ASSUMED PT CARE @0700. PT IS AA&O TO ALL. HE IS PLEASANT AND COOPERATE WITH CARE. HE DENIES SI, AVH. HE REPORTS HIS MOOD GOOD. AFFECT IS CONGRUENT. DISCHARGE MEDICATIONS, APPTS, AND HOW TO ACESS MEDICAL RECORDS REVIEWED. PT DECLINES SMOKING CEASATION INFORMATIONS. RX FAXED TO [facility]. PT BELONGINGS RETURNED AND DISCHARGED TO HOME @0678
== END 2025-07-09 11:12 | disposition home or self-care (01) | DRG 885 ==
LOC: BHU 17:01
PROVIDERS: ADMIT Psychiatry & Neurology Psychiatry
DX: F31.4 Bipolar disorder, current episode depressed, severe, without psychotic features (principal); R45.851 Suicidal ideations; F43.10 Post-traumatic stress disorder, unspecified; F60.3 Borderline personality disorder; Z23 Encounter for immunization; Z79.899 Other long term (current) drug therapy
CPT/HCPCS: 36415; 80061; 83036; A9270; G0008

== ENCOUNTER 2025-07-03 23:00 | Emergency (ER) | payer OTHER ==
[~2025-07-03] VITALS: Ht 172.7 cm; Wt 70.3 kg
[2025-07-03] MEDS ORDERED: NS 1,000 ML IV SCH (23:50)
[2025-07-03 23:55] LABS: BASOPHILS ABSOLUTE AUTO 0.03 K/mm3 (0.00-0.23); BASOPHILS PERCENT AUTO 0 % (0-2); EOSINOPHILS ABSOLUTE AUTO 0.14 K/mm3 (0.00-0.68); EOSINOPHILS PERCENT AUTO 2 % (0-6); Hematocrit 47.2 % (37.0-53.0); Hemoglobin 16.2 g/dL (13.5-17.5); IMMATURE GRAN ABSOLUTE AUTO 0.03 K/mm3 (0.00-0.10); IMMATURE GRAN PERCENT AUTO 0 % (0-1); LYMPHOCYTES ABSOLUTE AUTO 2.53 K/mm3 (0.84-5.20); LYMPHOCYTES PERCENT AUTO 31 % (21-46); MONOCYTES ABSOLUTE AUTO 0.74 K/mm3 (0.16-1.47); MONOCYTES PERCENT AUTO 9 % (4-13); Mean Corpuscular HGB Conc 34.3 g/dL (31.5-36.5); Mean Corpuscular Volume 86 fL (80-100); NEUTROPHILS ABSOLUTE AUTO 4.76 K/mm3 (1.96-9.15); NEUTROPHILS PERCENT AUTO 58 % (41-73); NRBC ABSOLUTE 0.00 K/mm3 (0.00-0.02); NRBC Auto 0.0 /100 WBC (0.0-0.2); Platelet Count 300 K/mm3 (150-400); RDW Coefficient Variation 13.0 % (11.7-14.2); RDW Standard Deviation 40.5 fL (35.1-46.3)
[2025-07-04 00:13] LABS: Lithium 0.94 mmol/L (0.60-1.20)
[2025-07-04 00:15] LABS: Acetaminophen, Random <2.0 ug/mL (10.0-30.0); Alanine Aminotransfer (ALT/SGP 28 U/L (12-78); Albumin, Blood 4.4 g/dL (3.4-5.0); Albumin/Globulin Ratio 1.1 (0.8-1.8); Anion Gap 7 mmol/L (3-11); Aspartate Aminotrans (AST/SGOT 20 U/L (12-37); Bilirubin, Total 0.6 mg/dL (0.1-1.0); Blood Urea Nitrogen 11 mg/dL (8-24); CO2, Blood 29 mmol/L (21-32); Calcium, Blood 9.6 mg/dL (8.5-10.1); Chloride, Blood 103 mmol/L (98-108); Creatinine, Blood 0.88 mg/dL (0.60-1.20); Ethanol (Alcohol), Blood, Med <3 mg/dL; Globulin, Blood 3.9 g/dL (2.2-4.0); Glucose, Blood 107 mg/dL (70-99); Magnesium, Blood 2.2 mg/dL (1.6-2.4); Phosphorus, Blood 2.3 mg/dL (2.5-4.9); Potassium, Blood 4.0 mmol/L (3.5-5.5); Salicylate <1.7 mg/dL (2.8-20.0); Sodium, Blood 135 mmol/L (136-145); Thyroid Stimulating Hormone 0.367 uIU/mL (0.360-4.800); Total Protein, Blood 8.3 g/dL (6.4-8.2)
[2025-07-04 04:00] LABS: Source, Urine Clean Catch
[2025-07-04 04:05] LABS: Bilirubin, Urine Neg (Neg); Color, Urine Yellow (P-Yellow); Glucose Qualitative, Urine Neg (Neg); Ketones, Urine 2+ (Neg); Leukocyte Esterase, Urine Neg (Neg); Protein, Urine Neg (Neg); Specific Gravity, Urine 1.010 (1.003-1.022); Urobilinogen, Urine NORM (Normal)
[2025-07-04 04:23] LABS: U Amphetamine Screen Not Detected; U Barbiturate Screen Not Detected; U Benzodiazapine Screen Not Detected; U Buprenorphine Screen Not Detected; U Cannabinoids Screen DETECTED; U Cocaine Screen Not Detected; U Methadone Screen Not Detected; U Methamphetamine Screen Not Detected; U Opiates Screen Not Detected; U Oxycodone Screen Not Detected; U Phencyclidine Screen Not Detected
[2025-07-04 07:20] LABS: Lithium 0.44 mmol/L (0.60-1.20)
[2025-07-04 08:30] VITALS: BP 126/77
[2025-07-04] MEDS ORDERED: HYDPAM50 PO (17:14)
== END 2025-07-04 16:52 ==
LOC: ER 23:00 → EOR 23:01 → ER 23:01 → EOR 07-04 13:13
PROVIDERS: Emergency Medicine
DX: T56.892A Toxic effect of other metals, intentional self-harm, initial encounter (principal); E86.0 Dehydration; Z59.89 Other problems related to housing and economic circumstances; Z91.048 Other nonmedicinal substance allergy status
CPT/HCPCS: 80053; 80178; 80320; 81003; 83735; 84100; 84443; 85025; 93005; 93010; 99285-25; A9270; G0378; G0480; J7030

== ENCOUNTER 2025-07-20 21:54 | Emergency (ER) | payer OTHER ==
[~2025-07-20] VITALS: Ht 172.7 cm; Wt 59.0 kg
[~2025-07-20 21:54] MED LIST changes: +HYDPAM50 PO; +Lithium Carbon450 MG
[2025-07-20 22:18] LABS: BASOPHILS ABSOLUTE AUTO 0.03 K/mm3 (0.00-0.23); BASOPHILS PERCENT AUTO 0 % (0-2); EOSINOPHILS ABSOLUTE AUTO 0.22 K/mm3 (0.00-0.68); EOSINOPHILS PERCENT AUTO 3 % (0-6); Hematocrit 44.1 % (37.0-53.0); Hemoglobin 14.9 g/dL (13.5-17.5); IMMATURE GRAN ABSOLUTE AUTO 0.01 K/mm3 (0.00-0.10); IMMATURE GRAN PERCENT AUTO 0 % (0-1); LYMPHOCYTES ABSOLUTE AUTO 2.18 K/mm3 (0.84-5.20); LYMPHOCYTES PERCENT AUTO 32 % (21-46); MONOCYTES ABSOLUTE AUTO 0.47 K/mm3 (0.16-1.47); MONOCYTES PERCENT AUTO 7 % (4-13); Mean Corpuscular HGB Conc 33.8 g/dL (31.5-36.5); Mean Corpuscular Volume 87 fL (80-100); NEUTROPHILS ABSOLUTE AUTO 3.90 K/mm3 (1.96-9.15); NEUTROPHILS PERCENT AUTO 57 % (41-73); NRBC ABSOLUTE 0.00 K/mm3 (0.00-0.02); NRBC Auto 0.0 /100 WBC (0.0-0.2); Platelet Count 274 K/mm3 (150-400); RDW Coefficient Variation 13.5 % (11.7-14.2); RDW Standard Deviation 43.5 fL (35.1-46.3)
[2025-07-20 22:42] LABS: Alanine Aminotransfer (ALT/SGP 26.0 U/L (12-78); Albumin, Blood 3.7 g/dL (3.4-5.0); Albumin/Globulin Ratio 1.0 (0.8-1.8); Anion Gap 9.0 mmol/L (3-11); Aspartate Aminotrans (AST/SGOT 38.0 U/L (12-37); Bilirubin, Total 0.4 mg/dL (0.1-1.0); Blood Urea Nitrogen 13.0 mg/dL (8-24); CO2, Blood 28.0 mmol/L (21-32); Calcium, Blood 9.2 mg/dL (8.5-10.1); Chloride, Blood 107.0 mmol/L (98-108); Creatinine, Blood 0.87 mg/dL (0.60-1.20); Globulin, Blood 3.7 g/dL (2.2-4.0); Glucose, Blood 121.0 mg/dL (70-99); Potassium, Blood 4.6 mmol/L (3.5-5.5); Sodium, Blood 139.0 mmol/L (136-145); Total Protein, Blood 7.4 g/dL (6.4-8.2)
[2025-07-20 22:48] VITALS: BP 112/73
== END 2025-07-20 23:14 | disposition home or self-care (01) ==
LOC: ER 21:54
PROVIDERS: Student in an Organized Health Care Education/Training Program
DX: K40.90 Unilateral inguinal hernia, without obstruction or gangrene, not specified as recurrent (principal); Z91.09 Other allergy status, other than to drugs and biological substances; Z79.899 Other long term (current) drug therapy
CPT/HCPCS: 76857; 80053; 85025; 99284-25